=== PATIENT | male | born 1940 | race Caucasian/White ===

== ENCOUNTER → 2018-04-10 13:14 | Outpatient (CLI) | payer MEDICARE, MEDICAID, SELFPAY ==
--- NOTE | 2018-04-10 | DI.RAD.S_ITS ---
PROCEDURE: FL BARIUM SWALLOW W SPEECH INDICATIONS: DYSPHAGIA TECHNIQUE: Examination was conducted in conjunction with speech pathology per standard protocol. In the lateral projection, filming was performed of the patient swallowing. AP projection filming may also be performed with patient swallowing. COMPARISON: [facility], , CHEST 2 VIEW, 05/06/2017, 13:10. FINDINGS: Function: The oral preparatory phase appears normal, with proper containment. The subsequent oral propulsive phase, pharyngeal phase, and esophageal phase of swallowing also appear normal with all proffered substances. There is mild laryngeal penetration or aspiration. No pathologic vallecular pooling. Morphology: No cricopharyngeal bar is identified. No cervical esophageal webs. No Zenker's diverticulum. No strictures. A calibrated barium pill was given. There is mild obstruction at the level aorta and more distally at the gastroesophageal junction. IMPRESSION: 1. Mild laryngeal penetration and aspiration. Please see separate speech pathologist's report. 2. 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 3. Mild obstruction at the level of GE junction. Upper endoscopy is suggested for followup examination. Dictated by: Augusto Crespo M.D. on 04/10/2018 at 14:11 Approved by: Augusto Crespo M.D. on 04/10/2018 at 14:18
--- NOTE | 2018-04-10 16:27 | ST.SWALLOW ---
Care Team Visit Care Team Role Provider Type Cassius Butler MD Primary Care Provider Physician Specialty: Family Practice Address: [address] [place] [place], [address] Email: [email or web address] Brett Roche MD Attending Provider Physician Specialty: Ear, Nose, Throat Address: [address] [place] [address] [place], [address] Email: Modified Barium Swallow Study INSIGHT DIRECTOR Modified Barium Swallow Study Start: 04/10/18 16:00 Freq: Status: Active Protocol: Document 04/10/18 16:00 MRM (Rec: 04/10/18 16:26 MRM [id number]) Modified Barium Swallow Study Total Time Visit Start Time 13:30 Visit Stop Time 14:30 Total Visit Minutes [address] Roche Reason for Referral Dysphagia; cough Setting Setting Outpatient Care Patient Information Identification Type Name Other Patient History Patient is a 77 year old male present for an outpatient MBS following recommendations from community swallow screen at [facility]. Per ENT report, he is a persistent smoker, presenting for evaluation of progressive dysphagia and chronic cough. 2 years of dysphagia beginning with pills, gradually worsening to food/liquids. Feeling that the edge in his throat (likely referring to epiglottis) does not go down. Patient informed INSIGHT DIRECTOR that he has occasionally felt things sticking in his throat, largely due to them getting stuck on the edge and not going down. Coughing most often relieves this sensation. Rarely does he expectorate food/drinks. Mostly he is able to swallow after coughing. He also told INSIGHT DIRECTOR that recently he began to cough so severely that he felt a pain on the left side of his throat. Upon palpation, INSIGHT DIRECTOR observed a bump /nodule-like prominence in the left side of his mid-thoat, just below the angle of mandible. Patient reported no recent weight loss or episodes of pneumonia. No neurological changes. Subjective Observations Patient arrived independently for his swallow study. No complaints of pain pre/post treatment. Patient Positioning Position View Lat-A/P Imaging Lateral View Textures Administered Trials Presented Thin Liquid via Cup Cowles Liquid via Cup Dysphagia Blenderized Textures Dysphagia Mechanical Textures Regular Textures Barium Tablet Oral Phase Source: MBSIMP (TM) (C) Bolus Specific Scoring Grid Lip Closure No Impairment (WNL) Tongue Control During Bolus Hold Minimal Impairment Bolus Prep/Mastication Minimal Impairment Bolus Transport/Lingual Motion Moderate Impairment A/P Lingual Propulsion Delay Yes Oral Residue Mild Impairment Residue Clearing Mild Impairment Nasal Regurgitation No Pharyngeal Phase Source: MBSIMP (TM) (C) Bolus Specific Scoring Grid Delayed Initiation of Pharyngeal Swallow Yes Soft Palate Elevation Mild Impairment Tongue Base Strength/Range of Motion Moderate Impairment Residue Along the Tongue Base Yes Clearance of Residue Along Tongue Base Mild Impairment Laryngeal Elevation Mild Impairment Anterior Hyoid Movement Moderate Impairment Epiglottic Range of Motion Moderate Impairment Vallecular Residue Yes Clearance of Vallecular Residue Mild Impairment Laryngeal Vestibular Closure Moderate Impairment Pharyngeal Stripping Wave Mild Impairment Pharyngeal Contraction Mild Impairment Posterior Pharyngeal Wall Residue Yes Clearance of Posterior Pharyngeal Wall Mild Impairment Residue Upper Esophageal Sphincter Opening Minimal Impairment Residue in the Pyriform Sinuses Yes Clearance of Residue in the Pyriform Minimal Impairment Sinuses Esophageal Clearance Upright Position WFL Pharyngoesophageal Backflow Observed No A/P View Textures Administered Trials Presented Thin Liquid via Cup Dysphagia Blenderized Textures A/P View Observations Pharyngeal Contraction WFL Esophageal Function Slowed Clearing Poor Motility Stasis Narrowing Esophageal Observations Esophageal Function Observed narrowed esophagus with slow peristalsis and difficulty passing barium table through esophagus and into stomach. Multiple sips of thin liquid (4) and tsp bites of applesauce (2) required to completely clear pill into stomach. Patient aware of presence of pill in esophagus, but stated that it was not painful. Please see Radiologist's report for further details. He recommended GI endoscopy follow up. Clinical Impressions Dysphagia Type Moderate pharyngeal dysphagia Findings Moderately pharyngeal dysphagia significant for delayed swallow initiation, delayed epiglottic inversion, reduced hyolaryngeal excursion and reduced airway closure. Deep laryngeal penetration and subsequent aspiration (silent ) observed in initial swallow and again at the end of the study with chin tuck. Aspiration observed only with thin liquids. With small sips, single and sequential, he was able to clear trials of thin liquid x6. With large swallow sizes, he did aspirate due to delayed swallow initiation and max spillage past the epiglottis and into the laryngeal vestibule. Aspiraiton occurred during the swallow. Patient cued to cough and clear throat, then initiate dry swallows. This was successful in extracting aspiration from trachea. No penetration or aspiration observed in trials of nectar thick liquid, applesauce, fruit or cracker. Mild- moderate residue in the valleculae and pyriform sinuses observed, but able to clear with dry swallows. Observed significant difficulty with mastication of dry cracker. Patient stated, I feel like I'm chewing newspaper). However, able to masticate and swallow despite being edentulous. Observed spillage of fruit and cracker to the valleculae prior to swallow initiation. Patient received barium tablet with water. Observed easy clearance through oral cavity and pharynx, but slowed at the level of the UES. With additional swallow, it did pass into the esophagus. In A- P view, observed stopped peristalsis of the pill in the mid-chest. With multiple trials of thin liquid, able to clear pill to the lower esophageal region, however, moderate difficulty observed passing into the stomach. Trails of applesauce x2 needed to successfully clear tablet into stomach. Please see Radiologist's report for further details. RECOMMEND: Thin liquids, no chin tuck, small sips only. Regular textures. Small bites/ sips. Alternate liquids/solids . Add moisture to dry foods to assist in passage through pharynx and esophagus. Begin meals with small sips of water . Implement dysphagia strategies to improve pharyngeal strength (chelita, effortful swallow, cordell) . Strategies explained and demonstrated to the patient, who also completed them and verbalized understanding. Strongly recommend follow up in outpatient speech therapy targeting epiglottic inversion , base of tongue strengthening , and laryngeal closure. Recommend follow up with GI for further esophageal study. Rehabilitation Potential Good Patient Appropriate for Therapy Yes Recommendations Diet Liquids Order Thin Diet Order Regular Medication Recommendation As Tolerated Comments Pills crushed or in applesauce Additional Dietary Needs Chopped Food Reminders to Use Strategies Aspiration Precautions Recommended Precautions Upright at 90 Degrees Alternate Liquids/Solids Frequent Rest Periods Small Bites/Sips Effortful Swallow Double Swallow Cordell Maneuvor Additional Precautions Chelita, effortful swallow Treatment Plan Therapy Recommendations Outpatient Speech Therapy Oral Motor Exercises Lingual Exercises Base of Tongue Exercises Compensatory Strategy Education Recommended Referrals Primary Care Physician GI Consult ENT Consult Compensatory Strategies Recommendations Sitting Upright (90 deg) Double Swallow Mendelsonn Maneuver Fpc Goals Outpatient speech therapy targeting epiglottic inversion , base of tongue strengthening , and laryngeal closure. Tolerate the safest, least restrictive diet without overt s/s of aspiration. Will receive additional education regarding results of the swallow study, aspiration , dysphagia, and the importance of following aspiration precautions. Placement Recommendation After Discharge Home
== END ==
PROVIDERS: PCP Family Medicine; Visit Provider Otolaryngology
DX: R13.10 Dysphagia, unspecified (principal); R47.02 Dysphasia; K22.2 Esophageal obstruction
CPT/HCPCS: 74230; 92611

== ENCOUNTER → 2018-08-27 12:32 | Outpatient (CLI) | payer MEDICARE, MEDICAID, SELFPAY ==
[2018-08-27 13:49] LABS: Blood Urea Nitrogen 8 mg/dL (9-20); Carbon Dioxide 24 mmol/L (22-32); Chloride 98 mmol/L (98-107); Estimated Glomerular Filt Rate > 60.0 mL/min (>60); Glucose 111 mg/dL (80-110); HEMOLYSIS < 15 (0-50); Potassium 4.2 mmol/L (3.4-5.1); Sodium 132 mmol/L (137-145)
== END ==
PROVIDERS: Visit Provider Specialist
DX: C61 Malignant neoplasm of prostate (principal)
CPT/HCPCS: 36415; 80048; 84153

== ENCOUNTER → 2018-09-02 10:08 | Outpatient (CLI) | payer MEDICARE, MEDICAID, SELFPAY ==
--- NOTE | 2018-09-02 | DI.NM.S_ITS ---
PROCEDURE: SD BONE SCAN WHOLE BODY RADIOPHARMACEUTICAL: 20.7 mCi Tc-99m MDP IV. INDICATIONS: Malignant neoplasm of prostate TECHNIQUE: Delayed whole-body scintigrams were obtained approximately 3-4 hours after intravenous injection of radiotracer. Anterior and posterior views were acquired from vertex to feet. Additional left and right oblique views of the pelvis were obtained. COMPARISON: [facility], [place], HEAD WITHOUT CONTRAST, 02/14/2011, 10:07. [place], [place], BONE SCAN WHOLE BODY, 02/23/2014, 15:24. [place], [place], BONE SCAN WHOLE BODY, 08/06/2010, 9:38. FINDINGS: Through the axial and appendicular skeleton no osseous metastatic disease is found. Mild degenerative disc disease is noted at the lower lumbosacral spine, L4-5 and L5-S1 area. This was previously present. Also previously present was asymmetric shoulder joint osteoarthritis, without exchange consultant time. This is greater on the right than the left. Minimal asymmetric increased isotope deposition is seen at the inferior left maxillary sinus, much improved from the prior study in February of 2014. IMPRESSION: No evidence of osseous metastatic disease related to reported prostate carcinoma. Radioisotope uptake and excretion through the urinary tract appears normal. Stable degenerative changes as noted lower lumbosacral spine and shoulder. Dictated by: Wilmer Garcia M.D. on 09/02/2018 at 14:53 Approved by: Wilmer Garcia M.D. on 09/02/2018 at 14:55
--- NOTE | 2018-09-02 | DI.CT.S_ITS ---
PROCEDURE: CT CHEST ABD PEL W CON INDICATIONS: Malignant neoplasm of prostate TECHNIQUE: After the administration of oral and intravenous contrast, 5 mm thick sections acquired from the lung apices to the symphysis. 5 mm coronal and sagittal reformats were performed, with additional 7 mm coronal MIP reformats through the lungs. For radiation dose reduction, the following was used: automated exposure control, adjustment of mA and/or kV according to patient size. COMPARISON: [facility], [place], NECK/CHEST/ABD/PEL W CONTRAST, 02/23/2014, 11:22. FINDINGS: Image quality: Excellent. CHEST: Lungs and pleura: No acute airspace opacities. A small peripheral nodular radiodensity at the lateral left lower hemithorax measures 5 mm, as was previously the case. No pulmonary nodules have developed. Emphysematous change is prominent at the upper lobes bilaterally, without development of a malignant appearing mass. Left lower hemithorax anterolateral lung scarring, not previously present in the lingular segment left upper lobe. Note is made of new soft tissue prominence at the middle and upper thirds of the left hilum, best seen centered on series 2 image 30 in an area measuring up to 2.4 cm AP and 1.8 cm transverse. This causes appreciable narrowing of the bronchi passing through this area. A mild degree of atelectasis at the left upper lobe is also present as is what likely is retention of pulmonary secretions best seen on the coronal reformatt imaging lung windows through that area. This was not previously present on CT scanning from February of 2014. No pleural effusions or pneumothorax. Central and peripheral airways otherwise appear patent and normal in caliber. Mediastinum: Heart size is normal. No pericardial effusion. No mediastinal or hilar adenopathy by size criteria. Thoracic aorta and central pulmonary arteries are normal in size. Esophagus is normal in caliber. No hiatal hernia. Chest wall: No axillary or supraclavicular adenopathy by size criteria. Thyroid gland appears normal. ABDOMEN: Solid organs: Liver is normal in size and enhancement. Gallbladder appears normal where well visualized. Biliary system is non dilated. Pancreas enhances normally. Spleen is normal in size and enhancement. No adrenal nodules. Kidneys demonstrate normal size and enhancement, without hydronephrosis. Peritoneum and bowel: Bowel loops demonstrate normal wall thickness and caliber. No free fluid or air. Nodes and vessels: No retroperitoneal or mesenteric adenopathy by size criteria. Aorta and inferior vena cava are normal in size. Miscellaneous: No ventral hernias. PELVIS: Genitourinary: Bladder wall thickness is normal. Miscellaneous: No inguinal hernias or adenopathy. The prostate does not appear enlarged, no adenopathy within the pelvis is seen. Bones: No suspicious bony lesions. No vertebral body compression fractures. IMPRESSION: 1. COPD with emphysematous change, stable appearing small 5 mm nodule lateral aspect of left lower lobe. New finding of what appears be lung scarring within the lingular segment left upper lobe, adjacent to the left ventricular apex. Presumed long-standing smoking history. 2. There is a finding suspicious for central pulmonary mass lesion with adjacent contiguous adenopathy involving the middle and upper thirds of the left hilum where new soft tissue has developed surrounding bronchi, constricting the bronchi, and resulting in a mild degree of atelectasis combined with retention of pulmonary secretions within the left upper lobe near the lung apex. Nuclear medicine PET CT scanning likely is warranted to more accurately assess this area to assist in differentiating between malignancy versus infection. This appearance was not present in February of 2014. 3. The patient carries a history of reported prostate carcinoma. No osteoblastic lesions through the bones are seen and the prostate itself appears normal in size. No adjacent pelvic adenopathy is found. No distant evidence of prostate carcinoma metastasis. Dictated by: Wilmer Garcia M.D. on 09/02/2018 at 14:04 Approved by: Wilmer Garcia M.D. on 09/02/2018 at 14:15
== END ==
PROVIDERS: PCP Family Medicine; Visit Provider Specialist
DX: C61 Malignant neoplasm of prostate (principal); J44.9 Chronic obstructive pulmonary disease, unspecified; R91.1 Solitary pulmonary nodule; J98.11 Atelectasis; J98.4 Other disorders of lung; M47.817 Spondylosis without myelopathy or radiculopathy, lumbosacral region; M19.019 Primary osteoarthritis, unspecified shoulder
CPT/HCPCS: 71260; 74177; 78306; A9503; Q9967

== ENCOUNTER → 2018-09-23 10:57 | Outpatient (CLI) | payer MEDICARE, MEDICAID, SELFPAY ==
--- NOTE | 2018-09-25 16:46 | P.PFT.S_ITS ---
Pulmonary Function Test Referral & Results Date Patient Seen: 09/23/18 Requesting provider: Cassius Butler Indication: J44.9 Results: The spirometry demonstrates an FVC of 4.1 2 L which is 99% of predicted. The FEV1 was measured at 2.25 L which is 75% of predicted. The FEV1/FVC ratio was 55 which is 75% of predicted. Following the administration of bronchodilator there was no appreciable change. Lung volumes show an SVC of 3.84 L which is 85% of predicted. The diffusing capacity was measured at 19.78 which is 59% of predicted. No hemoglobin value was provided, so no correction for potential anemia could be made, if appropriate. The maximum voluntary ventilation was normal Interpretation: This study demonstrates mild to moderate obstructive lung di sease based on reduction in FEV1 and FEV1/FVC ratio. Following bronchodilator there is no significant benefit There is mild restrictive lung disease present based on slight reduction in lung volumes There is a [id number] reduction in diffusing capacity suggesting an element of disease at the capillary alveolar level as well. Compared to PFTs performed in October 2014, current study is essentially unchanged
== END ==
PROVIDERS: PCP Family Medicine; Visit Provider Family Medicine
DX: J44.9 Chronic obstructive pulmonary disease, unspecified (principal)
CPT/HCPCS: 94060; 94726; 94729

== ENCOUNTER 2018-11-26 11:48 | Day surgery (SDC) | payer MEDICARE, MEDICAID, SELFPAY ==
[2018-11-26] VITALS (7 sets, daily range): BP systolic 139–166; BP diastolic 66–79; PULSE 53–70; RESP 16–19; TEMP 36.8–37.1; O2SAT 92–98; BMI 21.5
--- NOTE | 2018-11-26 | PATH_ITS ---
[facility] Accession Number: [id number] . 01 Material submitted: . esophagus, E-G Junction - GE JUNCTION BIOPSY . 01 Clinical history: . SUSPICION OF VALLADARES'S ESOPHAGUS . 02 Diagnosis: Gastroesophageal Junction, Biopsy: Squamocolumnar junctional mucosa with specialized intestinal metaplasia; please see comment. Negative for dysplasia or malignancy. MRV/11/27/2018 . 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 . 02 Electronically signed: . Cheko Romo MD, PhD, Pathologist NPI- [id number] . 01 Gross description: . GE JUNCTION BIOPSY: Received in formalin are multiple fragment(s) of solano, soft tissue measuring 0.1 x 0.1 x 0.1 cm to 0.3 x 0.2 x 0.2 cm which is entirely submitted and submitted entirely in 1 cassette(s) /DMC /DMC . 02 Pathologist provided ICD-10: K22.70 . 02 CPT . 636893 Performed at: 01 [facility] [address], [place], [place] [id number] MD Cornelius Brown MD Phone: [phone] Performed at: 02 [facility] [address] [place], [place] [id number] MD Patricia Elizabeth MD Phone: [phone]
[2018-11-26] MEDS: SODIUM CHLORIDE 0.9% 1,000 ML 200 ML IV (12:20)
--- NOTE | 2018-11-26 12:25 | PM.PREOP ---
Pre-operative Note Interval Note History & Physical reviewed/Exam performed by Physician: Yes Changes to H&P: No ASA Class (for procedural sedation): II
[2018-11-26] MEDS: TETRACAINE/BENZOCAINE/BUTAMBEN (CETACAINE) BOTTLE 1 SPRAY TOP (12:40)
[2018-11-26] MEDS: LIDOCAINE 4% SOLN 50 ML 20 ML TOP (12:40)
[2018-11-26] MEDS: fentaNYL 250 MCG/5 ML INJ IV (12:41)
[2018-11-26] MEDS: MIDAZOLAM 5 MG/5 ML VIAL IV (12:41)
--- NOTE | 2018-11-26 12:51 | PM.OP.ENDO ---
Operative Date/Time/Diagnoses Date of procedure: 11/26/18 Time of procedure: 12:51 Pre-op diagnosis: Dysphagia Post-op diagnosis: same Procedure & Clinicians Study performed: 1. Esophagogastroduodenosocpy with biopsies Same procedure as scheduled: Yes Indications: 78yo M with dysphagia and coughing referred by ENT for EGD. Surgeon: Khadijah Boles Procedure Notes SCOAP/Timeout: 1233 Procedure in detail: After obtaining informed consent, the patient was brought to the GI suite and placed in the left lateral decubitus position on the examination table. After placement of appropriate monitors, the patient was given incremental doses of Versed and Fentanyl until an appropriate level of sedation was achieved. A time out was held per SCOAP protocol. Patient's initial BP was 189/80 but this came down. A bite block was gently placed between the patient's gums. The endoscope was lubricated and then passed into the patient's posterior oropharynx. The esophagus was cannulated under direct vision and the scope was passed to the second portion of the duodenum without difficulty. The scope was then withdrawn with careful examination of all areas of the upper GI tract and mucosa. The mucosa had mild hyperemic changes along the body. In the stomach, the instrument was retroflexed and the GE junction examined. A tongue of salmon colored tissue extending 1cm from the GEJ suspicious for Adame's was seen. Four quadrant biopsies were taken. The scope was straightened and the procedure continued with examination of the remainder of the upper GI tract. A patch of more pink tissue was noted higher in the upper esophagus but was not abnormal other than a different color than surrounding tissue. Air was aspirated from the stomach and the endoscope gently removed from the esophagus. The patient was allowed to awaken from sedation without difficulty but his blood pressure spiked to 200s/100s which improved with medication. He was taken to the post-anesthesia care unit in good condition. Air was aspirated from the stomach and the endoscope gently removed from the esophagus. Scope withdrawal time: n/a Sedation minutes: 11 Findings: Adame's esophagus (possible, single column 1cm of salmon colored tissue at GEJ) Specimen(s): other (4 quadrant biopsies from GEJ for suspicion of Adame's) Complications: other (hypertension to 230/118, treated with IV metoprolol with good response) Impression: 1. 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 Normal posterior oropharynx Recommendations: EGD in 3 years (pending biopsies) Follow up: weeks Disposition: PACU
[2018-11-26] MEDS: METOPROLOL TARTRATE 5 MG/5 ML INJ IV (12:53)
== END 2018-11-26 14:09 ==
PROVIDERS: PCP Family Medicine; Visit Provider Surgery
PROC: 0DJ08ZZ Inspection of Upper Intestinal Tract, Via Natural or Artificial Opening Endoscopic (ICD-10-PCS; CPT 43235; principal; 2018-11-26 13:00)
DX: K22.70 Barrett's esophagus without dysplasia (principal); I10 Essential (primary) hypertension; F17.210 Nicotine dependence, cigarettes, uncomplicated
CPT/HCPCS: 43239; 88305; 99152; J2250; J3010

== ENCOUNTER → 2019-02-01 12:21 | Outpatient (CLI) | payer MEDICARE, MEDICAID, SELFPAY ==
[2019-02-01 13:49] LABS: Estimated Glomerular Filt Rate > 60.0 mL/min (>60)
== END ==
PROVIDERS: Visit Provider Radiology Radiation Oncology
DX: C34.00 Malignant neoplasm of unspecified main bronchus (principal)
CPT/HCPCS: 36415; 82565

== ENCOUNTER → 2019-03-02 11:48 | Outpatient (CLI) | payer MEDICARE, MEDICAID, SELFPAY ==
[2019-03-02 14:03] LABS: Prostate Specific Antigen 122 ng/mL (0.10-4.00)
== END ==
PROVIDERS: Visit Provider Specialist
DX: C61 Malignant neoplasm of prostate (principal)
CPT/HCPCS: 36415; 84153

== ENCOUNTER → 2019-04-07 16:14 | Outpatient (CLI) | payer MEDICARE, MEDICAID, SELFPAY ==
--- NOTE | 2019-04-07 | DI.RAD.S_ITS ---
PROCEDURE: XR CERVICAL SPINE 2V OR 3V INDICATIONS: NECK PAIN x10 YEARS TECHNIQUE: 5 view(s) of the cervical spine were acquired. COMPARISON: None. FINDINGS: Bones: No fractures or dislocations to the T1 level. The lateral masses of C1 appear intact on the odontoid view. No suspicious bony lesions. Severe cervical spondylitic change. Multilevel disc loss and uncovertebral joint hypertrophy. Multilevel facet hypertrophy. Soft tissues: No prevertebral soft tissue swelling. Dense carotid atherosclerotic calcifications. IMPRESSION: 1. Severe cervical spinal lytic change. 2. ASCVD Dictated by: Elvis Hoff M.D. on 04/07/2019 at 16:53 Approved by: Elvis Hoff M.D. on 04/07/2019 at 16:54
== END ==
PROVIDERS: PCP Student in an Organized Health Care Education/Training Program; Visit Provider Student in an Organized Health Care Education/Training Program
DX: M54.2 Cervicalgia (principal); M47.812 Spondylosis without myelopathy or radiculopathy, cervical region; I25.10 Atherosclerotic heart disease of native coronary artery without angina pectoris
CPT/HCPCS: 72040

== ENCOUNTER → 2019-04-09 13:59 | Outpatient (CLI) | payer MEDICARE, MEDICAID, SELFPAY ==
--- NOTE | 2019-04-09 | DI.US.S_ITS ---
PROCEDURE: US CAROTID DOPPLER BI INDICATIONS: DIZZINESS TECHNIQUE: Color and pulse Doppler interrogation was performed of both carotid systems, with image documentation and velocity measurements. COMPARISON: None. FINDINGS: Stenosis calculations are based on SRU (Society of Radiologists in Ultrasound) criteria. Right side: Brachial blood pressure: 127/69 mm Hg. Common carotid artery peak systolic velocity: 74 cm/sec. Internal carotid artery peak systolic velocity: 185 cm/sec. Internal carotid artery end diastolic velocity: 44 cm/sec. External carotid artery peak systolic velocity: 154 cm/sec. ICA/CCA peak systolic ratio: 2.5. Garcia scale imaging description: Heavy scattered plaque. Percent internal carotid artery stenosis: 50-69% stenosis. Vertebral artery: Flow direction is antegrade. Left side: Brachial blood pressure: 120/62 mm Hg. Common carotid artery peak systolic velocity: 75 cm/sec. Internal carotid artery peak systolic velocity: 132 cm/sec. Internal carotid artery end diastolic velocity: 19 cm/sec. External carotid artery peak systolic velocity: 85 cm/sec. ICA/CCA peak systolic ratio: 1.8. Garcia scale imaging description: Heavy scattered plaque. Percent internal carotid artery stenosis: 50-69% stenosis. Vertebral artery: Flow direction is antegrade. IMPRESSION: 50-69% bilateral internal carotid artery stenosis. Dictated by: Finesse Thomas [facility] Interpreted: Mercedes Ribeiro MD on 04/09/2019 at 16:07 Approved by: Mercedes Ribeiro M.D. on 04/09/2019 at 16:22
== END ==
PROVIDERS: PCP Student in an Organized Health Care Education/Training Program; Visit Provider Student in an Organized Health Care Education/Training Program
DX: R42 Dizziness and giddiness (principal); I65.23 Occlusion and stenosis of bilateral carotid arteries
CPT/HCPCS: 93880

== ENCOUNTER 2019-04-14 14:07 | Day surgery (SDC) | payer MEDICARE, MEDICAID, OTHER, SELFPAY ==
[2019-04-14] VITALS (8 sets, daily range): BP systolic 141–161; BP diastolic 62–75; PULSE 61–79; RESP 11–20; TEMP 36–36.2; O2SAT 97–100; BMI 18.6
--- NOTE | 2019-04-14 | DI.RAD.S_ITS ---
PROCEDURE: XR CHEST 1V INDICATIONS: PORT A CATH INSERTION TECHNIQUE: One view of the chest was acquired. COMPARISON: [facility], , CHEST 2 VIEW, 05/06/2017, 13:10. FINDINGS: Surgical changes and devices: Right chest port with the tip projecting in the mid SVC. Lungs and pleura: Diffuse interstitial disease and scarring as before. No new consolidation. No pleural effusions or pneumothorax. Mediastinum: Mediastinal contours appear normal. Heart size is normal. Bones and chest wall: No suspicious bony lesions. Overlying soft tissues appear unremarkable. IMPRESSION: Right chest port with the tip projecting in the mid SVC. No pneumothorax identified. Dictated by: Brenton Espana M.D. on 04/14/2019 at 17:45 Approved by: Brenton Espana M.D. on 04/14/2019 at 17:49
[2019-04-14] MEDS: LACTATED RINGERS 1,000 ML 100 ML IV ×2 (15:10→16:25)
--- NOTE | 2019-04-14 15:52 | SUR.PREOP ---
Dr. Manjarrez notified 90mls IV fluid infused, no new orders.
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
[2019-04-14] MEDS: CLINDAMYCIN 900 MG/50 ML PIGGYBACK 50 MG IV (16:20)
--- NOTE | 2019-04-14 16:26 | SUR.OPER ---
Supine on padded OR bed, head on donut, arm padded and tucked at side, legs uncrossed, safety belt at thigh, tape over blanket over lower legs.
[2019-04-14] MEDS: HEPARIN 5,000 UNIT, SODIUM CHLORIDE 0.9% 50 ML IV (16:40)
[2019-04-14] MEDS: BUPIVACAINE 0.25% (PF) VIAL 30 ML INJ (16:42)
--- NOTE | 2019-04-14 17:11 | PM.OP.1 ---
Operative Date/Time/Diagnoses Date of procedure: 04/14/19 Time of procedure: 17:12 Pre-op diagnosis: lung cancer Post-op diagnosis: same Procedure & Clinicians Procedure: Right internal jugular Port-A-Cath placement under ultrasound guidance Same procedure as scheduled: Yes Indications: 78-year-old male with stage III left lung cancer presents for a Port-A-Cath placement for chemotherapy Surgeon: Jb Coreas Click Yes if Unassisted: Yes Anesthesia Type: General Operative Notes Findings: Tip of catheter terminates in the SVC Estimated Blood Loss (mL): 5 Procedure in detail: Patient was brought to the operating room placed supine on table. Bilateral lower extremity compressive devices were applied. General anesthesia was induced and he was intubated with an LMA. He was then prepped and draped in usual sterile fashion. Time-out was performed ensure the correct patient procedure necessary equipment within the operating room. He received 2 g of Ancef prior to incision. Under ultrasound guidance the right internal jugular vein was accessed under direct visualization. The guidewire was then threaded through the needle. Its placement was then confirmed using fluoroscopy. The dilator was then placed over the guidewire. The catheter was then inserted through the sheath. Placement was again confirmed with fluoroscopy. A subcutaneous pocket was made in the right chest wall. The tunneler device was used to move the catheter from the neck to the chest pocket. The port was attached after it was primed with heparined saline. The port was tested to ensure that it flushed easily and had good blood return. The port was then secured to the underlying fascia using interupted 0 Prolene suture. Hemostasis was achieved. The wound was irrigated with sterile saline. The subcutaneous tissues were reapproximated with the 3 0 Vicryl and then skin closed with 4-0 Monocryl. The skin was sealed with Dermabond. Patient tolerated procedure well. The sponge and instrument count at the end operation was correct. Patient emerged from general anesthesia was extubated and taken to the postoperative care unit in stable condition Complications: none Post-operative Condition: stable Disposition: same day surgery
== END 2019-04-14 18:16 | disposition home or self-care (01) ==
PROVIDERS: PCP Student in an Organized Health Care Education/Training Program; Visit Provider Surgery
PROC: (CPT 36561; principal; 2019-04-14 16:00)
DX: C34.92 Malignant neoplasm of unspecified part of left bronchus or lung (principal); Z45.2 Encounter for adjustment and management of vascular access device; F17.210 Nicotine dependence, cigarettes, uncomplicated
CPT/HCPCS: 36561; 71045; 76000; C1788; J1644; J2405; J2704; J3010

== ENCOUNTER → 2019-05-12 14:11 | Outpatient (CLI) | payer MEDICARE, MEDICAID, SELFPAY ==
[2019-05-12 16:16] LABS: Prostate Specific Antigen 39.1 ng/mL (0.10-4.00)
== END ==
PROVIDERS: PCP Student in an Organized Health Care Education/Training Program; Visit Provider Specialist
DX: C61 Malignant neoplasm of prostate (principal)
CPT/HCPCS: 36415; 84153

== ENCOUNTER → 2019-07-13 09:06 | Outpatient (CLI) | payer MEDICARE, MEDICAID, SELFPAY ==
--- NOTE | 2019-07-13 09:08 | DI.CT.S_ITS ---
PROCEDURE: CT CHEST ABD PEL W CON INDICATIONS: follow up lung cancer TECHNIQUE: After the administration of oral and intravenous contrast, 5 mm thick sections acquired from the lung apices to the symphysis. 5 mm coronal and sagittal reformats were performed, with additional 7 mm coronal MIP reformats through the lungs. For radiation dose reduction, the following was used: automated exposure control, adjustment of mA and/or kV according to patient size. COMPARISON: [facility], CT, NECK/CHEST/ABD/PEL W CONTRAST, 02/23/2014, 11:22. [facility], NM, NM PET CT FUSION SKULL 2 THIGH, 10/14/2018, 15:50. [facility], CT, CT CHEST ABD PEL W CON, 09/02/2018, 11:19. [facility], CT, CT CHEST WITH CONTRAST, 02/04/2019, 14:51. FINDINGS: Image quality: Excellent. CHEST: Lungs and pleura: The 1.8 x 1.7 cm left hilar mass seen on the comparison CT dated 02/04/2019 has decreased in size. A small 0.6 x 1.3 cm soft tissue density is noted in the left hilum. There is a 3.8 x 3.5 cm masslike density in the left apex, unchanged, most likely secondary to scarring. There is traction bronchiectasis in the left upper lobe. A subpleural density seen in the lingula, measuring 1.1 x 2.8 cm, also unchanged. There is severe centrilobular emphysema emphysema. No pleural effusions or pneumothorax. Central and peripheral airways appear patent and normal in caliber. Mediastinum: A small left hilar lymph node is noted, measuring 9 x 13 mm. Heart size is normal. No pericardial effusion. No mediastinal or hilar adenopathy by size criteria. Thoracic aorta and central pulmonary arteries are normal in size. Esophagus is normal in caliber. Small hiatal hernia. Chest wall: No axillary or supraclavicular adenopathy by size criteria. Thyroid gland is normal. There is a Port-A-Cath in the right anterior chest wall. ABDOMEN: Solid organs: Liver is normal in size and enhancement. Gallbladder is normal. Biliary system is non dilated. Pancreas enhances normally. Spleen is normal in size and enhancement. No adrenal nodules. Kidneys demonstrate normal size and enhancement, without hydronephrosis. Peritoneum and bowel: Bowel loops demonstrate normal wall thickness and caliber. A large amount of stool in colon. Normal appendix. No free fluid or air. Nodes and vessels: No retroperitoneal or mesenteric adenopathy by size criteria. Mild infrarenal abdominal aortic aneurysm measuring 2.9 cm. Severe atherosclerosis. Miscellaneous: No ventral hernias. PELVIS: Genitourinary: Distended bladder. Bladder wall thickness is normal. Prostate is enlarged. Miscellaneous: No inguinal hernias or adenopathy. Bones: No suspicious bony lesions. No vertebral body compression fractures. IMPRESSION: 1. Interval decrease in size of the left hilar mass. 2. Small left hilar lymph node is noted in. 3. Severe centrilobular emphysema and right apical and lingular opacitie Dictated by: Augusto Crespo M.D. on 07/13/2019 at 14:12 Approved by: Augusto Crespo M.D. on 07/13/2019 at 18:37
== END ==
PROVIDERS: Family Provider Student in an Organized Health Care Education/Training Program; PCP Student in an Organized Health Care Education/Training Program
DX: C34.92 Malignant neoplasm of unspecified part of left bronchus or lung (principal); J43.2 Centrilobular emphysema; K44.9 Diaphragmatic hernia without obstruction or gangrene
CPT/HCPCS: 71260; 74177; Q9967

== ENCOUNTER 2019-09-06 13:45 | Outpatient (RCR) | payer MEDICARE, OTHER, MEDICAID, SELFPAY ==
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
--- NOTE | 2019-07-20 16:00 | PT.OTN ---
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) Muscle weakness (generalized) (07/20/19) Other abnormalities of gait and mobility (07/20/19) Chronic fatigue, unspecified (07/20/19) History of falling (07/20/19) Physical Therapy Treatment Note PT-OP-A Visit Information Start: 06/29/19 13:51 Freq: Status: Active Protocol: Document 07/20/19 15:15 DCW (Rec: 07/20/19 16:00 DCW [id number]) Out-Patient Physical Therapy Visit Information Visit Information Visit Type Initial Evaluation Visit Start Time 15:15 Visit Stop Time 16:00 Total Visit Minutes 45 Visit Number 2 Number of HOOP RIVETER Visits 0 Evaluation Information Evaluation Date 06/29/19 PT-OP-B Current Condition Start: 06/29/19 13:51 Freq: Status: Active Protocol: Document 06/29/19 10:30 DCW (Rec: 06/29/19 14:27 DCW [id number]) Current Condition History of Current Condition Onset Date 3 weeks Current Complaints weakness and imbalance following chemotherapy History of Current Condition Pt is a 78 year old male presenting with complaints of a waxing and waning imbalance and weakness associated with his current course of chemotherapy. Per his oncology notes, pt has a history of a relatively small primary squamous lung cancer but was found to have positive N2 node at the time of endobronchial ultrasound. He underwent radiation therapy but had declined concurrent chemotherapy. At the completion of his radiation, he was open to the possibility of sequential therapy and has since undergone his 2nd cycle of treatment (Ronald Miguel MD, 06/09/19). Pt reports that he felt okay following his first round of chemo, but the after the second, was weak and shaking and wouldn't stand for about a week. After his recent third round, he performed a lot of LAQ, SLR , and mini-squats, and felt like he recovered much more quickly. Pt requested a referral to PT so he could learn more exercises to help strengthen his legs, unfortunately due to a delay getting in for an appointment, his fourth (and planned final ) round of chemo is tomorrow, but pt is hopeful that following that, he will be feeling well enough that he can continue with his currently scheduled PT. Pt also admits to two falls in his kitchen within the past 1. 5 years, and three or four other falls out in public over the last five years or so. Prior Treatments and Tests Radiation and chemotherapy Treatment Goals Patient/Caregiver Goals Pt wants to limit weakness and fatigue following chemotherapy, and to improve walking and stability. Personal Factors Other Personal Factors That May Effect COPD, Hx Prostate Ca s/p Therapy/Recovery orchiectomy, radiation and chemo secondary to squamous cell lung cancer. PT-OP-C Subjective Start: 06/29/19 13:51 Freq: Status: Active Protocol: Document 07/20/19 15:15 DCW (Rec: 07/20/19 16:00 DCW [id number]) OP-PT Subjective Patient Comments Patient Comments Today is a medium day. I have really bad days, I have medium days, and over the last six months, I have had three good days. PT-OP-D Balance Start: 06/29/19 13:51 Freq: Status: Active Protocol: Document 06/29/19 10:30 DCW (Rec: 06/29/19 14:27 DCW [id number]) Balance Tests Waters Balance Test Waters Balance Test Score 42 Waters Impairment Rating 20 to 39% Impaired (Score 34- 44) Waters Balance Assessment Evaluation Sitting to Standing Ability Independent w/Hands Unsupported Stance Supervision- 2 minutes Sitting Unsupported, Feet on Floor Safely- 2 minutes Standing to Sitting Ability Assist, Control w/Hands Transfer Ability Safely, Hand Use Unsupported Stance- Eyes Closed Supervision, 10 seconds Unsupported Stance- Eyes Open Independent, <30 seconds Reaching Forward Standing Safely, 5 inches Pick- Up Object From Floor Supervision Look Behind Shoulder - Standing Shifts Weight Well Turning 360 Degrees Turns Bilateral, < 4 secs Unsupported Stance, Alternating Feet on (I)- 8 Steps in 20 secs Stair Unsupported Tandem Stance Small Step- 30 seconds Unilateral Leg Stance Lifts Leg/Unable to Hold Total Score Waters Total Score (out of 56 points) 42 Waters Impairment Rating 20 to 39% Impaired (Score 34- 44) PT-OP-E Functional Tests Start: 06/29/19 13:51 Freq: Status: Active Protocol: Document 06/29/19 10:30 DCW (Rec: 06/29/19 14:27 DCW [id number]) Functional Tests Dynamic Gait Index (DGI) Score PT-OP-M Strength Start: 06/29/19 13:51 Freq: Status: Active Protocol: Document 06/29/19 10:30 DCW (Rec: 06/29/19 14:27 DCW [id number]) Hip Strength Hip Manual Muscle Testing Right Flexion (L2) 4- Good- Abduction 4 Good Adduction 4- Good- External Rotation 4- Good- Internal Rotation 4- Good- Left Flexion (L2) 4 Good Abduction 4- Good- Adduction 4- Good- External Rotation 4- Good- Internal Rotation 4- Good- Knee Strength Knee Manual Muscle Testing Right Flexion (S2) 4- Good- Extension (L3) 4 Good Left Flexion (S2) 4- Good- Extension (L3) 4 Good Ankle/Foot Strength Ankle and Foot Manual Muscle Testing Right Dorsiflexion (L4) 3+ Fair+ Plantarflexion (S1) 3 Fair Left Dorsiflexion (L4) 3+ Fair+ Plantarflexion (S1) 3 Fair PT-OP-Q Treatments Start: 06/29/19 13:51 Freq: Status: Active Protocol: Document 07/20/19 15:15 DCW (Rec: 07/20/19 16:00 DCW [id number]) Cardio Equipment Recumbent Elliptical ([employer]) Duration (Minutes) 4 Resistance 4 Seat Position 11 Gym Equipment Shuttle Recovery Bilateral Heel Raises Resistance 50# Unilateral Squats Resistance 37# Shuttle Recovery Platform Stable Bilateral Squats Resistance 75# Shuttle Recovery Platform Stable Therapeutic Exercises Standing Exercises Hamstring Curls Standing Exercise Name HS Curls Side bilateral Resistance 2# Toe-taps Standing Exercise Name Toe-taps Side bilateral Resistance 2# Equipment Used 6 step Other Exercises Hurdles Other Exercise Name Hurdles Resistance 2# Comments Fwd, Lateral Resisted Ambulation Other Exercise Name Resisted Side-stepping Resistance Yellow Equipment Used T-band PT-OP-T Assessment and Plan Start: 06/29/19 13:51 Freq: Status: Active Protocol: Document 07/20/19 15:15 DCW (Rec: 07/20/19 16:00 DCW [id number]) Physical Therapy Assessment Impairments Impairments Activity Tolerance,Balance, Functional Mobility,Gait, Strength Other Concerns Fall Risk Yes, per Waters (42/56) and DGI () Barriers to Rehabilitation Hx of falls, Hx of Lung Ca, Hx of Prostate Ca, currently receiving Chemo Goals Three Impairment Pt experiences weakness and decreased stability following Chemo Detention Goal (LTG) Pt to score >20/24 on DGI and >49/56 on Watesr to demonstrate decreased falls risk LTG Duration 08/30/18 Two Impairment Pt has increased difficulty rising after sitting on toilet Detention Goal (LTG) Pt to improve gross LE MMT to 4/5 to improve sit->stand ability LTG Duration 08/30/18 One Impairment Pt does not have an appropriate home exercise program Short Term Goal (STG) Pt to be independent and compliant with an appropriate HEP STG Duration 07/30/18 Assessment Summary Assessment Pt tolerated treatment with moderate fatigue, but wanted to continue working through his increased tiredness. Pt refused extended rest break or any water during treatment. Physical Therapy Plan Frequency and Duration Frequency of Treatment 2x/Week Duration of Treatment 10 weeks Plan of Care Start Date 06/29/19 Plan of Care End Date 09/07/19 Therapeutic Interventions Therapeutic Interventions Aquatic Therapy,Balance Training,Home Exercise Program ,Manual Therapy,Neuromuscular Re-education,Patient/Caregiver Education,Self-Care/Home Management,Soft Tissue Mobilization,Therapeutic Exercises Modalities Cold Pack/Ice Massage,Hot Packs Next Visit Focus/Plan Next Note Type Treatment Note Next Visit Plan Balance training, strengthening, increased activity tolerance
--- NOTE | 2019-07-22 14:30 | PT.OTN ---
Current Diagnoses Malignant neoplasm of unspecified part of left bronchus or lung (07/22/19) Idiopathic progressive neuropathy (07/22/19) Muscle weakness (generalized) (07/22/19) Other abnormalities of gait and mobility (07/22/19) Chronic fatigue, unspecified (07/22/19) History of falling (07/22/19) Physical Therapy Treatment Note PT-OP-A Visit Information Start: 06/29/19 13:51 Freq: Status: Active Protocol: Document 07/22/19 13:45 DCW (Rec: 07/22/19 14:30 DCW [id number]) Out-Patient Physical Therapy Visit Information Visit Information Visit Type Treatment Note Visit Start Time 13:45 Visit Stop Time 14:30 Total Visit Minutes 45 Visit Number 3 Number of ELECTRONICS DETAIL DRAFTSPERSON Visits 0 Evaluation Information Evaluation Date 06/29/19 PT-OP-B Current Condition Start: 06/29/19 13:51 Freq: Status: Active Protocol: Document 06/29/19 10:30 DCW (Rec: 06/29/19 14:27 DCW [id number]) Current Condition History of Current Condition Onset Date 3 weeks Current Complaints weakness and imbalance following chemotherapy History of Current Condition Pt is a 78 year old male presenting with complaints of a waxing and waning imbalance and weakness associated with his current course of chemotherapy. Per his oncology notes, pt has a history of a relatively small primary squamous lung cancer but was found to have positive N2 node at the time of endobronchial ultrasound. He underwent radiation therapy but had declined concurrent chemotherapy. At the completion of his radiation, he was open to the possibility of sequential therapy and has since undergone his 2nd cycle of treatment (Ronald Miguel MD, 06/09/19). Pt reports that he felt okay following his first round of chemo, but the after the second, was weak and shaking and wouldn't stand for about a week. After his recent third round, he performed a lot of LAQ, SLR , and mini-squats, and felt like he recovered much more quickly. Pt requested a referral to PT so he could learn more exercises to help strengthen his legs, unfortunately due to a delay getting in for an appointment, his fourth (and planned final ) round of chemo is tomorrow, but pt is hopeful that following that, he will be feeling well enough that he can continue with his currently scheduled PT. Pt also admits to two falls in his kitchen within the past 1. 5 years, and three or four other falls out in public over the last five years or so. Prior Treatments and Tests Radiation and chemotherapy Treatment Goals Patient/Caregiver Goals Pt wants to limit weakness and fatigue following chemotherapy, and to improve walking and stability. Personal Factors Other Personal Factors That May Effect COPD, Hx Prostate Ca s/p Therapy/Recovery orchiectomy, radiation and chemo secondary to squamous cell lung cancer. PT-OP-C Subjective Start: 06/29/19 13:51 Freq: Status: Active Protocol: Document 07/22/19 13:45 DCW (Rec: 07/22/19 14:30 DCW [id number]) OP-PT Subjective Patient Comments Patient Comments Pt reports today is also a medium day, but yesterday was a bad day. He does not think it was due to the PT, and was just one of those days I get since the chemo. PT-OP-D Balance Start: 06/29/19 13:51 Freq: Status: Active Protocol: Document 06/29/19 10:30 DCW (Rec: 06/29/19 14:27 DCW [id number]) Balance Tests Waters Balance Test Waters Balance Test Score 42 Waters Impairment Rating 20 to 39% Impaired (Score 34- 44) Waters Balance Assessment Evaluation Sitting to Standing Ability Independent w/Hands Unsupported Stance Supervision- 2 minutes Sitting Unsupported, Feet on Floor Safely- 2 minutes Standing to Sitting Ability Assist, Control w/Hands Transfer Ability Safely, Hand Use Unsupported Stance- Eyes Closed Supervision, 10 seconds Unsupported Stance- Eyes Open Independent, <30 seconds Reaching Forward Standing Safely, 5 inches Pick- Up Object From Floor Supervision Look Behind Shoulder - Standing Shifts Weight Well Turning 360 Degrees Turns Bilateral, < 4 secs Unsupported Stance, Alternating Feet on (I)- 8 Steps in 20 secs Stair Unsupported Tandem Stance Small Step- 30 seconds Unilateral Leg Stance Lifts Leg/Unable to Hold Total Score Waters Total Score (out of 56 points) 42 Waters Impairment Rating 20 to 39% Impaired (Score 34- 44) PT-OP-E Functional Tests Start: 06/29/19 13:51 Freq: Status: Active Protocol: Document 06/29/19 10:30 DCW (Rec: 06/29/19 14:27 DCW [id number]) Functional Tests Dynamic Gait Index (DGI) Score PT-OP-M Strength Start: 06/29/19 13:51 Freq: Status: Active Protocol: Document 06/29/19 10:30 DCW (Rec: 06/29/19 14:27 DCW [id number]) Hip Strength Hip Manual Muscle Testing Right Flexion (L2) 4- Good- Abduction 4 Good Adduction 4- Good- External Rotation 4- Good- Internal Rotation 4- Good- Left Flexion (L2) 4 Good Abduction 4- Good- Adduction 4- Good- External Rotation 4- Good- Internal Rotation 4- Good- Knee Strength Knee Manual Muscle Testing Right Flexion (S2) 4- Good- Extension (L3) 4 Good Left Flexion (S2) 4- Good- Extension (L3) 4 Good Ankle/Foot Strength Ankle and Foot Manual Muscle Testing Right Dorsiflexion (L4) 3+ Fair+ Plantarflexion (S1) 3 Fair Left Dorsiflexion (L4) 3+ Fair+ Plantarflexion (S1) 3 Fair PT-OP-Q Treatments Start: 06/29/19 13:51 Freq: Status: Active Protocol: Document 07/22/19 13:45 DCW (Rec: 07/22/19 14:30 DCW [id number]) Cardio Equipment Recumbent Elliptical ([employer]) Duration (Minutes) 4 Resistance 3 Seat Position 9 Gym Equipment Shuttle Balance Blue Details Wide BRAIN, Staggered Therapeutic Exercises Standing Exercises Hamstring Curls Standing Exercise Name HS Curls Side bilateral Resistance 2# Toe-taps Standing Exercise Name Toe-taps Side bilateral Resistance 2# Equipment Used 6 step Other Exercises Hurdles Other Exercise Name Hurdles Resistance 2# Comments Fwd, Lateral Resisted Ambulation Other Exercise Name Resisted Side-stepping Resistance Yellow Equipment Used T-band Neuro Re-Education Treatment Balance Activities Tandem Ambulation Details Tandem Ambulation Equipment @ rail SLS Details SLS Equipment @ rail PT-OP-T Assessment and Plan Start: 06/29/19 13:51 Freq: Status: Active Protocol: Document 07/22/19 13:45 DCW (Rec: 07/22/19 14:30 DCW [id number]) Physical Therapy Assessment Impairments Impairments Activity Tolerance,Balance, Functional Mobility,Gait, Strength Other Concerns Fall Risk Yes, per Waters (42/56) and DGI (18/24) Barriers to Rehabilitation Hx of falls, Hx of Lung Ca, Hx of Prostate Ca, currently receiving Chemo Goals Three Impairment Pt experiences weakness and decreased stability following Chemo Engine Room Helper Goal (LTG) Pt to score >20/24 on DGI and >49/56 on Waters to demonstrate decreased falls risk LTG Duration 08/30/18 Two Impairment Pt has increased difficulty rising after sitting on toilet Intermediate Goal (LTG) Pt to improve gross LE MMT to 4/5 to improve sit->stand ability LTG Duration 08/30/18 One Impairment Pt does not have an appropriate home exercise program Short Term Goal (STG) Pt to be independent and compliant with an appropriate HEP STG Duration 07/30/18 Assessment Summary Assessment Pt fatigued more well managed today, fewer rest breaks needed, increased focus on balance during treatment session. Physical Therapy Plan Frequency and Duration Frequency of Treatment 2x/Week Duration of Treatment 10 weeks Plan of Care Start Date 06/29/19 Plan of Care End Date 09/07/19 Therapeutic Interventions Therapeutic Interventions Aquatic Therapy,Balance Training,Home Exercise Program ,Manual Therapy,Neuromuscular Re-education,Patient/Caregiver Education,Self-Care/Home Management,Soft Tissue Mobilization,Therapeutic Exercises Modalities Cold Pack/Ice Massage,Hot Packs Next Visit Focus/Plan Next Note Type Treatment Note Next Visit Plan Balance training, strengthening, increased activity tolerance
--- NOTE | 2019-07-29 14:30 | PT.OTN ---
Current Diagnoses Malignant neoplasm of unspecified part of left bronchus or lung (07/29/19) Idiopathic progressive neuropathy (07/29/19) Muscle weakness (generalized) (07/29/19) Other abnormalities of gait and mobility (07/29/19) Chronic fatigue, unspecified (07/29/19) History of falling (07/29/19) Physical Therapy Treatment Note PT-OP-A Visit Information Start: 06/29/19 13:51 Freq: Status: Active Protocol: Document 07/29/19 13:45 DCW (Rec: 07/29/19 14:30 DCW [id number]) Out-Patient Physical Therapy Visit Information Visit Information Visit Type Treatment Note Visit Start Time 13:45 Visit Stop Time 14:30 Total Visit Minutes 45 Visit Number 4 Number of FARM MACHINE OPERATOR Visits 0 Evaluation Information Evaluation Date 06/29/19 PT-OP-B Current Condition Start: 06/29/19 13:51 Freq: Status: Active Protocol: Document 06/29/19 10:30 DCW (Rec: 06/29/19 14:27 DCW [id number]) Current Condition History of Current Condition Onset Date 3 weeks Current Complaints weakness and imbalance following chemotherapy History of Current Condition Pt is a 78 year old male presenting with complaints of a waxing and waning imbalance and weakness associated with his current course of chemotherapy. Per his oncology notes, pt has a history of a relatively small primary squamous lung cancer but was found to have positive N2 node at the time of endobronchial ultrasound. He underwent radiation therapy but had declined concurrent chemotherapy. At the completion of his radiation, he was open to the possibility of sequential therapy and has since undergone his 2nd cycle of treatment (Ronald Miguel MD, 06/09/19). Pt reports that he felt okay following his first round of chemo, but the after the second, was weak and shaking and wouldn't stand for about a week. After his recent third round, he performed a lot of LAQ, SLR , and mini-squats, and felt like he recovered much more quickly. Pt requested a referral to PT so he could learn more exercises to help strengthen his legs, unfortunately due to a delay getting in for an appointment, his fourth (and planned final ) round of chemo is tomorrow, but pt is hopeful that following that, he will be feeling well enough that he can continue with his currently scheduled PT. Pt also admits to two falls in his kitchen within the past 1. 5 years, and three or four other falls out in public over the last five years or so. Prior Treatments and Tests Radiation and chemotherapy Treatment Goals Patient/Caregiver Goals Pt wants to limit weakness and fatigue following chemotherapy, and to improve walking and stability. Personal Factors Other Personal Factors That May Effect COPD, Hx Prostate Ca s/p Therapy/Recovery orchiectomy, radiation and chemo secondary to squamous cell lung cancer. PT-OP-C Subjective Start: 06/29/19 13:51 Freq: Status: Active Protocol: Document 07/29/19 13:45 DCW (Rec: 07/29/19 14:30 DCW [id number]) OP-PT Subjective Patient Comments Patient Comments Pt notes today is better than most, admits he is still weak, but he doesn't have that pain down in my legs. PT-OP-D Balance Start: 06/29/19 13:51 Freq: Status: Active Protocol: Document 06/29/19 10:30 DCW (Rec: 06/29/19 14:27 DCW [id number]) Balance Tests Waters Balance Test Waters Balance Test Score 42 Waters Impairment Rating 20 to 39% Impaired (Score 34- 44) Waters Balance Assessment Evaluation Sitting to Standing Ability Independent w/Hands Unsupported Stance Supervision- 2 minutes Sitting Unsupported, Feet on Floor Safely- 2 minutes Standing to Sitting Ability Assist, Control w/Hands Transfer Ability Safely, Hand Use Unsupported Stance- Eyes Closed Supervision, 10 seconds Unsupported Stance- Eyes Open Independent, <30 seconds Reaching Forward Standing Safely, 5 inches Pick- Up Object From Floor Supervision Look Behind Shoulder - Standing Shifts Weight Well Turning 360 Degrees Turns Bilateral, < 4 secs Unsupported Stance, Alternating Feet on (I)- 8 Steps in 20 secs Stair Unsupported Tandem Stance Small Step- 30 seconds Unilateral Leg Stance Lifts Leg/Unable to Hold Total Score Waters Total Score (out of 56 points) 42 Waters Impairment Rating 20 to 39% Impaired (Score 34- 44) PT-OP-E Functional Tests Start: 06/29/19 13:51 Freq: Status: Active Protocol: Document 06/29/19 10:30 DCW (Rec: 06/29/19 14:27 DCW [id number]) Functional Tests Dynamic Gait Index (DGI) Score PT-OP-M Strength Start: 06/29/19 13:51 Freq: Status: Active Protocol: Document 06/29/19 10:30 DCW (Rec: 06/29/19 14:27 DCW [id number]) Hip Strength Hip Manual Muscle Testing Right Flexion (L2) 4- Good- Abduction 4 Good Adduction 4- Good- External Rotation 4- Good- Internal Rotation 4- Good- Left Flexion (L2) 4 Good Abduction 4- Good- Adduction 4- Good- External Rotation 4- Good- Internal Rotation 4- Good- Knee Strength Knee Manual Muscle Testing Right Flexion (S2) 4- Good- Extension (L3) 4 Good Left Flexion (S2) 4- Good- Extension (L3) 4 Good Ankle/Foot Strength Ankle and Foot Manual Muscle Testing Right Dorsiflexion (L4) 3+ Fair+ Plantarflexion (S1) 3 Fair Left Dorsiflexion (L4) 3+ Fair+ Plantarflexion (S1) 3 Fair PT-OP-Q Treatments Start: 06/29/19 13:51 Freq: Status: Active Protocol: Document 07/29/19 13:45 DCW (Rec: 07/29/19 14:30 DCW [id number]) Cardio Equipment Recumbent Elliptical ([employer]) Duration (Minutes) 4 Resistance 3 Seat Position 9 Gym Equipment Shuttle Recovery Bilateral Heel Raises Resistance 50# Unilateral Squats Resistance 37# Shuttle Recovery Platform Stable Bilateral Squats Resistance 75# Shuttle Recovery Platform Stable Shuttle Balance Blue Details Wide BRAIN, Staggered Therapeutic Exercises Standing Exercises Marching Standing Exercise Name Standing Marching Resistance 4# Equipment Used @ rail Hamstring Curls Standing Exercise Name HS Curls Side bilateral Resistance 4# Toe-taps Standing Exercise Name Toe-taps Side bilateral Resistance 4# Equipment Used 6 step Other Exercises Hurdles Other Exercise Name Hurdles Resistance 2# Comments Fwd, Lateral Resisted Ambulation Other Exercise Name Resisted Side-stepping Resistance Yellow Equipment Used T-band Neuro Re-Education Treatment Balance Activities Foam Stance Details Narrow BRAIN /c head turns SLS Details SLS Equipment @ rail PT-OP-T Assessment and Plan Start: 06/29/19 13:51 Freq: Status: Active Protocol: Document 07/29/19 13:45 DCW (Rec: 07/29/19 14:30 DCW [id number]) Physical Therapy Assessment Impairments Impairments Activity Tolerance,Balance, Functional Mobility,Gait, Strength Other Concerns Fall Risk Yes, per Waters (42/56) and DGI (18/) Barriers to Rehabilitation Hx of falls, Hx of Lung Ca, Hx of Prostate Ca, currently receiving Chemo Goals Three Impairment Pt experiences weakness and decreased stability following Chemo Director Of Field Sales Goal (LTG) Pt to score >20/24 on DGI and >49/56 on Waters to demonstrate decreased falls risk LTG Duration 08/30/18 Two Impairment Pt has increased difficulty rising after sitting on toilet Director Of Field Sales Goal (LTG) Pt to improve gross LE MMT to 4/5 to improve sit->stand ability LTG Duration 08/30/18 One Impairment Pt does not have an appropriate home exercise program Short Term Goal (STG) Pt to be independent and compliant with an appropriate HEP STG Duration 07/30/18 Assessment Summary Assessment Pt still experiencing less fatigue during his PT session, improved strength in his bilateral legs today. Physical Therapy Plan Frequency and Duration Frequency of Treatment 2x/Week Duration of Treatment 10 weeks Plan of Care Start Date 06/29/19 Plan of Care End Date 09/07/19 Therapeutic Interventions Therapeutic Interventions Aquatic Therapy,Balance Training,Home Exercise Program ,Manual Therapy,Neuromuscular Re-education,Patient/Caregiver Education,Self-Care/Home Management,Soft Tissue Mobilization,Therapeutic Exercises Modalities Cold Pack/Ice Massage,Hot Packs Next Visit Focus/Plan Next Note Type Treatment Note Next Visit Plan Balance training, strengthening, increased activity tolerance
--- NOTE | 2019-08-05 17:32 | PT.OTN ---
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) Muscle weakness (generalized) (08/05/19) Other abnormalities of gait and mobility (08/05/19) Chronic fatigue, unspecified (08/05/19) History of falling (08/05/19) Physical Therapy Treatment Note PT-OP-A Visit Information Start: 06/29/19 13:51 Freq: Status: Active Protocol: Document 08/05/19 16:45 DCW (Rec: 08/05/19 17:32 DCW [id number]) Out-Patient Physical Therapy Visit Information Visit Information Visit Type Treatment Note Visit Start Time 16:45 Visit Stop Time 17:30 Total Visit Minutes 45 Visit Number 5 Number of DIVISION ORDER TECHNICIAN Visits 0 Evaluation Information Evaluation Date 06/29/19 PT-OP-B Current Condition Start: 06/29/19 13:51 Freq: Status: Active Protocol: Document 06/29/19 10:30 DCW (Rec: 06/29/19 14:27 DCW [id number]) Current Condition History of Current Condition Onset Date 3 weeks Current Complaints weakness and imbalance following chemotherapy History of Current Condition Pt is a 78 year old male presenting with complaints of a waxing and waning imbalance and weakness associated with his current course of chemotherapy. Per his oncology notes, pt has a history of a relatively small primary squamous lung cancer but was found to have positive N2 node at the time of endobronchial ultrasound. He underwent radiation therapy but had declined concurrent chemotherapy. At the completion of his radiation, he was open to the possibility of sequential therapy and has since undergone his 2nd cycle of treatment (Ronald Miguel MD, 06/09/19). Pt reports that he felt okay following his first round of chemo, but the after the second, was weak and shaking and wouldn't stand for about a week. After his recent third round, he performed a lot of LAQ, SLR , and mini-squats, and felt like he recovered much more quickly. Pt requested a referral to PT so he could learn more exercises to help strengthen his legs, unfortunately due to a delay getting in for an appointment, his fourth (and planned final ) round of chemo is tomorrow, but pt is hopeful that following that, he will be feeling well enough that he can continue with his currently scheduled PT. Pt also admits to two falls in his kitchen within the past 1. 5 years, and three or four other falls out in public over the last five years or so. Prior Treatments and Tests Radiation and chemotherapy Treatment Goals Patient/Caregiver Goals Pt wants to limit weakness and fatigue following chemotherapy, and to improve walking and stability. Personal Factors Other Personal Factors That May Effect COPD, Hx Prostate Ca s/p Therapy/Recovery orchiectomy, radiation and chemo secondary to squamous cell lung cancer. PT-OP-C Subjective Start: 06/29/19 13:51 Freq: Status: Active Protocol: Document 08/05/19 16:45 DCW (Rec: 08/05/19 17:32 DCW [id number]) OP-PT Subjective Patient Comments Patient Comments Just like always, had a half- bad day. PT-OP-D Balance Start: 06/29/19 13:51 Freq: Status: Active Protocol: Document 06/29/19 10:30 DCW (Rec: 06/29/19 14:27 DCW [id number]) Balance Tests Waters Balance Test Waters Balance Test Score 42 Waters Impairment Rating 20 to 39% Impaired (Score 34- 44) Waters Balance Assessment Evaluation Sitting to Standing Ability Independent w/Hands Unsupported Stance Supervision- 2 minutes Sitting Unsupported, Feet on Floor Safely- 2 minutes Standing to Sitting Ability Assist, Control w/Hands Transfer Ability Safely, Hand Use Unsupported Stance- Eyes Closed Supervision, 10 seconds Unsupported Stance- Eyes Open Independent, <30 seconds Reaching Forward Standing Safely, 5 inches Pick- Up Object From Floor Supervision Look Behind Shoulder - Standing Shifts Weight Well Turning 360 Degrees Turns Bilateral, < 4 secs Unsupported Stance, Alternating Feet on (I)- 8 Steps in 20 secs Stair Unsupported Tandem Stance Small Step- 30 seconds Unilateral Leg Stance Lifts Leg/Unable to Hold Total Score Waters Total Score (out of 56 points) 42 Waters Impairment Rating 20 to 39% Impaired (Score 34- 44) PT-OP-E Functional Tests Start: 06/29/19 13:51 Freq: Status: Active Protocol: Document 06/29/19 10:30 DCW (Rec: 06/29/19 14:27 DCW [id number]) Functional Tests Dynamic Gait Index (DGI) Score 1824 PT-OP-M Strength Start: 06/29/19 13:51 Freq: Status: Active Protocol: Document 06/29/19 10:30 DCW (Rec: 06/29/19 14:27 DCW [id number]) Hip Strength Hip Manual Muscle Testing Right Flexion (L2) 4- Good- Abduction 4 Good Adduction 4- Good- External Rotation 4- Good- Internal Rotation 4- Good- Left Flexion (L2) 4 Good Abduction 4- Good- Adduction 4- Good- External Rotation 4- Good- Internal Rotation 4- Good- Knee Strength Knee Manual Muscle Testing Right Flexion (S2) 4- Good- Extension (L3) 4 Good Left Flexion (S2) 4- Good- Extension (L3) 4 Good Ankle/Foot Strength Ankle and Foot Manual Muscle Testing Right Dorsiflexion (L4) 3+ Fair+ Plantarflexion (S1) 3 Fair Left Dorsiflexion (L4) 3+ Fair+ Plantarflexion (S1) 3 Fair PT-OP-Q Treatments Start: 06/29/19 13:51 Freq: Status: Active Protocol: Document 08/05/19 16:45 DCW (Rec: 08/05/19 17:32 DCW [id number]) Cardio Equipment Recumbent Elliptical (Biodex) Duration (Minutes) 5 Resistance 3 Seat Position 11 Gym Equipment Shuttle Recovery Bilateral Heel Raises Resistance 50# Unilateral Squats Resistance 37# Shuttle Recovery Platform Stable Bilateral Squats Resistance 75# Shuttle Recovery Platform Stable Shuttle Balance Blue Details Wide BRAIN, Staggered Therapeutic Exercises Other Exercises Hurdles Other Exercise Name Hurdles Resistance 2# Comments Fwd, Lateral Resisted Ambulation Other Exercise Name Resisted Side-stepping Resistance Yellow Equipment Used T-band Neuro Re-Education Treatment Balance Activities Foam Stance Details Narrow BRAIN /c head turns Surface Mina foam Tandem Ambulation Details Tandem Ambulation Equipment @ rail PT-OP-T Assessment and Plan Start: 06/29/19 13:51 Freq: Status: Active Protocol: Document 08/05/19 16:45 DCW (Rec: 08/05/19 17:32 DCW [id number]) Physical Therapy Assessment Impairments Impairments Activity Tolerance,Balance, Functional Mobility,Gait, Strength Other Concerns Fall Risk Yes, per Waters (42/56) and DGI (18/) Barriers to Rehabilitation Hx of falls, Hx of Lung Ca, Hx of Prostate Ca, currently receiving Chemo Goals Three Impairment Pt experiences weakness and decreased stability following Chemo Residential Goal (LTG) Pt to score >20/24 on DGI and >49/56 on Waters to demonstrate decreased falls risk LTG Duration 08/30/18 Two Impairment Pt has increased difficulty rising after sitting on toilet Residential Goal (LTG) Pt to improve gross LE MMT to 4/5 to improve sit->stand ability LTG Duration 08/30/18 One Impairment Pt does not have an appropriate home exercise program Short Term Goal (STG) Pt to be independent and compliant with an appropriate HEP STG Duration 07/30/18 Assessment Summary Assessment Pt requiring fewer rest breaks , however still complains of ongoing fatigue and weakness. Pt insistent he was told his chemo side-effects would disappear within the next few weeks, and is getting frustrated that he is still struggling with most activities. Physical Therapy Plan Frequency and Duration Frequency of Treatment 2x/Week Duration of Treatment 10 weeks Plan of Care Start Date 06/29/19 Plan of Care End Date 09/07/19 Therapeutic Interventions Therapeutic Interventions Aquatic Therapy,Balance Training,Home Exercise Program ,Manual Therapy,Neuromuscular Re-education,Patient/Caregiver Education,Self-Care/Home Management,Soft Tissue Mobilization,Therapeutic Exercises Modalities Cold Pack/Ice Massage,Hot Packs Next Visit Focus/Plan Next Note Type Treatment Note Next Visit Plan Balance training, strengthening, increased activity tolerance
--- NOTE | 2019-08-24 12:01 | PT.OTN ---
Current Diagnoses Malignant neoplasm of unspecified part of left bronchus or lung (08/24/19) Idiopathic progressive neuropathy (08/24/19) Muscle weakness (generalized) (08/24/19) Other abnormalities of gait and mobility (08/24/19) Chronic fatigue, unspecified (08/24/19) History of falling (08/24/19) Physical Therapy Treatment Note PT-OP-A Visit Information Start: 06/29/19 13:51 Freq: Status: Active Protocol: Document 08/24/19 11:20 (Rec: 08/24/19 12:01 [id number]) Out-Patient Physical Therapy Visit Information Visit Information Visit Type Treatment Note Visit Start Time 11:20 Visit Stop Time 12:01 Total Visit Minutes 41 Visit Number 6 Number of RIVETER HAND Visits 0 PT-OP-B Current Condition Start: 06/29/19 13:51 Freq: Status: Active Protocol: Document 06/29/19 10:30 DCW (Rec: 06/29/19 14:27 DCW [id number]) Current Condition History of Current Condition Onset Date 3 weeks Current Complaints weakness and imbalance following chemotherapy History of Current Condition Pt is a 78 year old male presenting with complaints of a waxing and waning imbalance and weakness associated with his current course of chemotherapy. Per his oncology notes, pt has a history of a relatively small primary squamous lung cancer but was found to have positive N2 node at the time of endobronchial ultrasound. He underwent radiation therapy but had declined concurrent chemotherapy. At the completion of his radiation, he was open to the possibility of sequential therapy and has since undergone his 2nd cycle of treatment (Ronald Miguel MD, 06/09/19). Pt reports that he felt okay following his first round of chemo, but the after the second, was weak and shaking and wouldn't stand for about a week. After his recent third round, he performed a lot of LAQ, SLR , and mini-squats, and felt like he recovered much more quickly. Pt requested a referral to PT so he could learn more exercises to help strengthen his legs, unfortunately due to a delay getting in for an appointment, his fourth (and planned final ) round of chemo is tomorrow, but pt is hopeful that following that, he will be feeling well enough that he can continue with his currently scheduled PT. Pt also admits to two falls in his kitchen within the past 1. 5 years, and three or four other falls out in public over the last five years or so. Prior Treatments and Tests Radiation and chemotherapy Treatment Goals Patient/Caregiver Goals Pt wants to limit weakness and fatigue following chemotherapy, and to improve walking and stability. Personal Factors Other Personal Factors That May Effect COPD, Hx Prostate Ca s/p Therapy/Recovery orchiectomy, radiation and chemo secondary to squamous cell lung cancer. PT-OP-C Subjective Start: 06/29/19 13:51 Freq: Status: Active Protocol: Document 08/24/19 11:20 (Rec: 08/24/19 12:01 [id number]) OP-PT Subjective Patient Comments Patient Comments some bad days and good days. The weakness on L lower leg and balance still bother me. I have been walking more recently. Patient Reported Progress Improving PT-OP-D Balance Start: 06/29/19 13:51 Freq: Status: Active Protocol: Document 06/29/19 10:30 DCW (Rec: 06/29/19 14:27 DCW [id number]) Balance Tests Waters Balance Test Waters Balance Test Score 42 Waters Impairment Rating 20 to 39% Impaired (Score 34- 44) Waters Balance Assessment Evaluation Sitting to Standing Ability Independent w/Hands Unsupported Stance Supervision- 2 minutes Sitting Unsupported, Feet on Floor Safely- 2 minutes Standing to Sitting Ability Assist, Control w/Hands Transfer Ability Safely, Hand Use Unsupported Stance- Eyes Closed Supervision, 10 seconds Unsupported Stance- Eyes Open Independent, <30 seconds Reaching Forward Standing Safely, 5 inches Pick- Up Object From Floor Supervision Look Behind Shoulder - Standing Shifts Weight Well Turning 360 Degrees Turns Bilateral, < 4 secs Unsupported Stance, Alternating Feet on (I)- 8 Steps in 20 secs Stair Unsupported Tandem Stance Small Step- 30 seconds Unilateral Leg Stance Lifts Leg/Unable to Hold Total Score Waters Total Score (out of 56 points) 42 Waters Impairment Rating 20 to 39% Impaired (Score 34- 44) PT-OP-E Functional Tests Start: 06/29/19 13:51 Freq: Status: Active Protocol: Document 06/29/19 10:30 DCW (Rec: 06/29/19 14:27 DCW [id number]) Functional Tests Dynamic Gait Index (DGI) Score 18/24 PT-OP-M Strength Start: 06/29/19 13:51 Freq: Status: Active Protocol: Document 06/29/19 10:30 DCW (Rec: 06/29/19 14:27 DCW [id number]) Hip Strength Hip Manual Muscle Testing Right Flexion (L2) 4- Good- Abduction 4 Good Adduction 4- Good- External Rotation 4- Good- Internal Rotation 4- Good- Left Flexion (L2) 4 Good Abduction 4- Good- Adduction 4- Good- External Rotation 4- Good- Internal Rotation 4- Good- Knee Strength Knee Manual Muscle Testing Right Flexion (S2) 4- Good- Extension (L3) 4 Good Left Flexion (S2) 4- Good- Extension (L3) 4 Good Ankle/Foot Strength Ankle and Foot Manual Muscle Testing Right Dorsiflexion (L4) 3+ Fair+ Plantarflexion (S1) 3 Fair Left Dorsiflexion (L4) 3+ Fair+ Plantarflexion (S1) 3 Fair PT-OP-Q Treatments Start: 06/29/19 13:51 Freq: Status: Active Protocol: Document 08/24/19 11:20 (Rec: 08/24/19 12:01 [id number]) Cardio Equipment Recumbent Stepper (Sci-Fit) Duration (Minutes) 6 Resistance 5 Gym Equipment Shuttle Recovery Unilateral Squats Resistance #50-62 Shuttle Recovery Platform Stable Reps/Time 12 x2, then 8 x1 Therapeutic Exercises Standing Exercises step up Standing Exercise Name 6' step with R UE on rail Side bilateral Toe-taps Standing Exercise Name Toe-taps Side bilateral Resistance 4# Equipment Used 6 step Neuro Re-Education Treatment Balance Activities high knee walk Details facilitate SLS Equipment @rail Comments PT with CGA Foam Stance Details Narrow BRAIN /c head turns Surface Mina foam Comments with PT perturbations ( moderate) Tandem Ambulation Details Tandem Ambulation Equipment @ rail Comments PT with CGA SLS Details SLS Equipment @ rail Comments PT with CGA PT-OP-T Assessment and Plan Start: 06/29/19 13:51 Freq: Status: Active Protocol: Document 08/24/19 11:20 HH (Rec: 08/24/19 12:01 [id number]) Physical Therapy Assessment Goals Three Impairment Pt experiences weakness and decreased stability following Chemo Shareholder Goal (LTG) Pt to score >20/24 on DGI and >49/56 on Waters to demonstrate decreased falls risk LTG Duration 08/30/18 Two Impairment Pt has increased difficulty rising after sitting on toilet Shareholder Goal (LTG) Pt to improve gross LE MMT to 4/5 to improve sit->stand ability LTG Duration 08/30/18 One Impairment Pt does not have an appropriate home exercise program Short Term Goal (STG) Pt to be independent and compliant with an appropriate HEP STG Duration 07/30/18 Assessment Summary Assessment Pt nichole tx well but needed CGA for most balancing ex. Noticead pt has poor recovery balance. Tx focused on ankle strategy balancing training and SL strengthening.
--- NOTE | 2019-08-26 14:53 | PT.OTN ---
Current Diagnoses Malignant neoplasm of unspecified part of left bronchus or lung (08/26/19) Idiopathic progressive neuropathy (08/26/19) Muscle weakness (generalized) (08/26/19) Other abnormalities of gait and mobility (08/26/19) Chronic fatigue, unspecified (08/26/19) History of falling (08/26/19) Physical Therapy Treatment Note PT-OP-A Visit Information Start: 06/29/19 13:51 Freq: Status: Active Protocol: Document 08/26/19 14:30 DCW (Rec: 08/26/19 14:53 DCW [id number]) Out-Patient Physical Therapy Visit Information Visit Information Visit Type Treatment Note Visit Start Time 14:30 Visit Stop Time 14:42 Total Visit Minutes 12 Visit Number 7 Number of ENVELOPE STAMPING MACHINE OPERATOR Visits 0 Evaluation Information Evaluation Date 06/29/19 PT-OP-B Current Condition Start: 06/29/19 13:51 Freq: Status: Active Protocol: Document 06/29/19 10:30 DCW (Rec: 06/29/19 14:27 DCW [id number]) Current Condition History of Current Condition Onset Date 3 weeks Current Complaints weakness and imbalance following chemotherapy History of Current Condition Pt is a 78 year old male presenting with complaints of a waxing and waning imbalance and weakness associated with his current course of chemotherapy. Per his oncology notes, pt has a history of a relatively small primary squamous lung cancer but was found to have positive N2 node at the time of endobronchial ultrasound. He underwent radiation therapy but had declined concurrent chemotherapy. At the completion of his radiation, he was open to the possibility of sequential therapy and has since undergone his 2nd cycle of treatment (Ronald Miguel MD, 06/09/19). Pt reports that he felt okay following his first round of chemo, but the after the second, was weak and shaking and wouldn't stand for about a week. After his recent third round, he performed a lot of LAQ, SLR , and mini-squats, and felt like he recovered much more quickly. Pt requested a referral to PT so he could learn more exercises to help strengthen his legs, unfortunately due to a delay getting in for an appointment, his fourth (and planned final ) round of chemo is tomorrow, but pt is hopeful that following that, he will be feeling well enough that he can continue with his currently scheduled PT. Pt also admits to two falls in his kitchen within the past 1. 5 years, and three or four other falls out in public over the last five years or so. Prior Treatments and Tests Radiation and chemotherapy Treatment Goals Patient/Caregiver Goals Pt wants to limit weakness and fatigue following chemotherapy, and to improve walking and stability. Personal Factors Other Personal Factors That May Effect COPD, Hx Prostate Ca s/p Therapy/Recovery orchiectomy, radiation and chemo secondary to squamous cell lung cancer. PT-OP-C Subjective Start: 06/29/19 13:51 Freq: Status: Active Protocol: Document 08/26/19 14:30 DCW (Rec: 08/26/19 14:53 DCW [id number]) OP-PT Subjective Patient Comments Patient Comments I'm much more tired than usual today. PT-OP-D Balance Start: 06/29/19 13:51 Freq: Status: Active Protocol: Document 06/29/19 10:30 DCW (Rec: 06/29/19 14:27 DCW [id number]) Balance Tests Waters Balance Test Waters Balance Test Score 42 Waters Impairment Rating 20 to 39% Impaired (Score 34- 44) Waters Balance Assessment Evaluation Sitting to Standing Ability Independent w/Hands Unsupported Stance Supervision- 2 minutes Sitting Unsupported, Feet on Floor Safely- 2 minutes Standing to Sitting Ability Assist, Control w/Hands Transfer Ability Safely, Hand Use Unsupported Stance- Eyes Closed Supervision, 10 seconds Unsupported Stance- Eyes Open Independent, <30 seconds Reaching Forward Standing Safely, 5 inches Pick- Up Object From Floor Supervision Look Behind Shoulder - Standing Shifts Weight Well Turning 360 Degrees Turns Bilateral, < 4 secs Unsupported Stance, Alternating Feet on (I)- 8 Steps in 20 secs Stair Unsupported Tandem Stance Small Step- 30 seconds Unilateral Leg Stance Lifts Leg/Unable to Hold Total Score Waters Total Score (out of 56 points) 42 Waters Impairment Rating 20 to 39% Impaired (Score 34- 44) PT-OP-E Functional Tests Start: 06/29/19 13:51 Freq: Status: Active Protocol: Document 06/29/19 10:30 DCW (Rec: 06/29/19 14:27 DCW [id number]) Functional Tests Dynamic Gait Index (DGI) Score 1824 PT-OP-M Strength Start: 06/29/19 13:51 Freq: Status: Active Protocol: Document 06/29/19 10:30 DCW (Rec: 06/29/19 14:27 DCW [id number]) Hip Strength Hip Manual Muscle Testing Right Flexion (L2) 4- Good- Abduction 4 Good Adduction 4- Good- External Rotation 4- Good- Internal Rotation 4- Good- Left Flexion (L2) 4 Good Abduction 4- Good- Adduction 4- Good- External Rotation 4- Good- Internal Rotation 4- Good- Knee Strength Knee Manual Muscle Testing Right Flexion (S2) 4- Good- Extension (L3) 4 Good Left Flexion (S2) 4- Good- Extension (L3) 4 Good Ankle/Foot Strength Ankle and Foot Manual Muscle Testing Right Dorsiflexion (L4) 3+ Fair+ Plantarflexion (S1) 3 Fair Left Dorsiflexion (L4) 3+ Fair+ Plantarflexion (S1) 3 Fair PT-OP-Q Treatments Start: 06/29/19 13:51 Freq: Status: Active Protocol: Document 08/26/19 14:30 DCW (Rec: 08/26/19 14:53 DCW [id number]) Cardio Equipment Recumbent Elliptical (Biodex) Duration (Minutes) 3 Resistance 4 Seat Position 10 Other stopped secondary to fatigue Gym Equipment Shuttle Balance Blue Details Wide BRAIN, Staggered PT-OP-T Assessment and Plan Start: 06/29/19 13:51 Freq: Status: Active Protocol: Document 08/26/19 14:30 DCW (Rec: 08/26/19 14:53 DCW [id number]) Physical Therapy Assessment Impairments Impairments Activity Tolerance,Balance, Functional Mobility,Gait, Strength Other Concerns Fall Risk Yes, per Waters (42/56) and DGI (18/24) Barriers to Rehabilitation Hx of falls, Hx of Lung Ca, Hx of Prostate Ca, currently receiving Chemo Goals Three Impairment Pt experiences weakness and decreased stability following Chemo Custodial Goal (LTG) Pt to score >20/24 on DGI and >49/56 on Waters to demonstrate decreased falls risk LTG Duration 08/30/18 Two Impairment Pt has increased difficulty rising after sitting on toilet Custodial Goal (LTG) Pt to improve gross LE MMT to 4/5 to improve sit->stand ability LTG Duration 08/30/18 One Impairment Pt does not have an appropriate home exercise program Short Term Goal (STG) Pt to be independent and compliant with an appropriate HEP STG Duration 07/30/18 Assessment Summary Assessment After attempting minimal activity, pt determined that he was too fatigued to do anything else, and requested an early end to his session. Physical Therapy Plan Frequency and Duration Frequency of Treatment 2x/Week Duration of Treatment 10 weeks Plan of Care Start Date 06/29/19 Plan of Care End Date 09/07/19 Therapeutic Interventions Therapeutic Interventions Aquatic Therapy,Balance Training,Home Exercise Program ,Manual Therapy,Neuromuscular Re-education,Patient/Caregiver Education,Self-Care/Home Management,Soft Tissue Mobilization,Therapeutic Exercises Modalities Cold Pack/Ice Massage,Hot Packs Next Visit Focus/Plan Next Note Type Treatment Note Next Visit Plan Balance training, strengthening, increased activity tolerance
--- NOTE | 2019-08-30 16:06 | PT.OTN ---
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) Muscle weakness (generalized) (08/30/19) Other abnormalities of gait and mobility (08/30/19) Chronic fatigue, unspecified (08/30/19) History of falling (08/30/19) Physical Therapy Treatment Note PT-OP-A Visit Information Start: 06/29/19 13:51 Freq: Status: Active Protocol: Document 08/30/19 15:30 DCW (Rec: 08/30/19 16:06 DCW [id number]) Out-Patient Physical Therapy Visit Information Visit Information Visit Type Treatment Note Visit Note 15 minutes late Visit Start Time 15:30 Visit Stop Time 16:00 Total Visit Minutes 13 Visit Number 8 Number of ASSISTED LIVING NURSING DIRECTOR Visits 0 Evaluation Information Evaluation Date 06/29/19 PT-OP-B Current Condition Start: 06/29/19 13:51 Freq: Status: Active Protocol: Document 06/29/19 10:30 DCW (Rec: 06/29/19 14:27 DCW [id number]) Current Condition History of Current Condition Onset Date 3 weeks Current Complaints weakness and imbalance following chemotherapy History of Current Condition Pt is a 78 year old male presenting with complaints of a waxing and waning imbalance and weakness associated with his current course of chemotherapy. Per his oncology notes, pt has a history of a relatively small primary squamous lung cancer but was found to have positive N2 node at the time of endobronchial ultrasound. He underwent radiation therapy but had declined concurrent chemotherapy. At the completion of his radiation, he was open to the possibility of sequential therapy and has since undergone his 2nd cycle of treatment (Ronald Miguel MD, 06/09/19). Pt reports that he felt okay following his first round of chemo, but the after the second, was weak and shaking and wouldn't stand for about a week. After his recent third round, he performed a lot of LAQ, SLR , and mini-squats, and felt like he recovered much more quickly. Pt requested a referral to PT so he could learn more exercises to help strengthen his legs, unfortunately due to a delay getting in for an appointment, his fourth (and planned final ) round of chemo is tomorrow, but pt is hopeful that following that, he will be feeling well enough that he can continue with his currently scheduled PT. Pt also admits to two falls in his kitchen within the past 1. 5 years, and three or four other falls out in public over the last five years or so. Prior Treatments and Tests Radiation and chemotherapy Treatment Goals Patient/Caregiver Goals Pt wants to limit weakness and fatigue following chemotherapy, and to improve walking and stability. Personal Factors Other Personal Factors That May Effect COPD, Hx Prostate Ca s/p Therapy/Recovery orchiectomy, radiation and chemo secondary to squamous cell lung cancer. PT-OP-C Subjective Start: 06/29/19 13:51 Freq: Status: Active Protocol: Document 08/30/19 15:30 DCW (Rec: 08/30/19 16:06 DCW [id number]) OP-PT Subjective Patient Comments Patient Comments Pt notes he is feeling much better than he was last week. PT-OP-D Balance Start: 06/29/19 13:51 Freq: Status: Active Protocol: Document 06/29/19 10:30 DCW (Rec: 06/29/19 14:27 DCW [id number]) Balance Tests Waters Balance Test Waters Balance Test Score 42 Waters Impairment Rating 20 to 39% Impaired (Score 34- 44) Waters Balance Assessment Evaluation Sitting to Standing Ability Independent w/Hands Unsupported Stance Supervision- 2 minutes Sitting Unsupported, Feet on Floor Safely- 2 minutes Standing to Sitting Ability Assist, Control w/Hands Transfer Ability Safely, Hand Use Unsupported Stance- Eyes Closed Supervision, 10 seconds Unsupported Stance- Eyes Open Independent, <30 seconds Reaching Forward Standing Safely, 5 inches Pick- Up Object From Floor Supervision Look Behind Shoulder - Standing Shifts Weight Well Turning 360 Degrees Turns Bilateral, < 4 secs Unsupported Stance, Alternating Feet on (I)- 8 Steps in 20 secs Stair Unsupported Tandem Stance Small Step- 30 seconds Unilateral Leg Stance Lifts Leg/Unable to Hold Total Score Waters Total Score (out of 56 points) 42 Waters Impairment Rating 20 to 39% Impaired (Score 34- 44) PT-OP-E Functional Tests Start: 06/29/19 13:51 Freq: Status: Active Protocol: Document 06/29/19 10:30 DCW (Rec: 06/29/19 14:27 DCW [id number]) Functional Tests Dynamic Gait Index (DGI) Score 18/24 PT-OP-M Strength Start: 06/29/19 13:51 Freq: Status: Active Protocol: Document 06/29/19 10:30 DCW (Rec: 06/29/19 14:27 DCW [id number]) Hip Strength Hip Manual Muscle Testing Right Flexion (L2) 4- Good- Abduction 4 Good Adduction 4- Good- External Rotation 4- Good- Internal Rotation 4- Good- Left Flexion (L2) 4 Good Abduction 4- Good- Adduction 4- Good- External Rotation 4- Good- Internal Rotation 4- Good- Knee Strength Knee Manual Muscle Testing Right Flexion (S2) 4- Good- Extension (L3) 4 Good Left Flexion (S2) 4- Good- Extension (L3) 4 Good Ankle/Foot Strength Ankle and Foot Manual Muscle Testing Right Dorsiflexion (L4) 3+ Fair+ Plantarflexion (S1) 3 Fair Left Dorsiflexion (L4) 3+ Fair+ Plantarflexion (S1) 3 Fair PT-OP-Q Treatments Start: 06/29/19 13:51 Freq: Status: Active Protocol: Document 08/30/19 15:30 DCW (Rec: 08/30/19 16:06 DCW [id number]) Cardio Equipment Recumbent Elliptical ([employer]) Duration (Minutes) 4 Resistance 4 Seat Position 9 Gym Equipment Shuttle Recovery Bilateral Heel Raises Resistance 50# Unilateral Squats Resistance 50# Shuttle Recovery Platform Stable Bilateral Squats Resistance 75# Shuttle Recovery Platform Stable Therapeutic Exercises Standing Exercises Toe-taps Standing Exercise Name Toe-taps Side bilateral Resistance 4# Equipment Used 6 step Other Exercises Hurdles Other Exercise Name Hurdles Resistance 4# Comments Fwd, Lateral Resisted Ambulation Other Exercise Name Resisted Side-stepping Resistance Yellow Equipment Used T-band PT-OP-T Assessment and Plan Start: 06/29/19 13:51 Freq: Status: Active Protocol: Document 08/30/19 15:30 DCW (Rec: 08/30/19 16:06 DCW [id number]) Physical Therapy Assessment Impairments Impairments Activity Tolerance,Balance, Functional Mobility,Gait, Strength Other Concerns Fall Risk Yes, per Waters (42/56) and DGI () Barriers to Rehabilitation Hx of falls, Hx of Lung Ca, Hx of Prostate Ca, currently receiving Chemo Goals Three Impairment Pt experiences weakness and decreased stability following Chemo Shelter Goal (LTG) Pt to score >20/24 on DGI and >49/56 on Waters to demonstrate decreased falls risk LTG Duration 08/30/18 Two Impairment Pt has increased difficulty rising after sitting on toilet Rewriter Goal (LTG) Pt to improve gross LE MMT to 4/5 to improve sit->stand ability LTG Duration 08/30/18 One Impairment Pt does not have an appropriate home exercise program Short Term Goal (STG) Pt to be independent and compliant with an appropriate HEP STG Duration 07/30/18 Assessment Summary Assessment Pt tolerated much more activity today, had no complaints of pain or fatigue. Physical Therapy Plan Frequency and Duration Frequency of Treatment 2x/Week Duration of Treatment 10 weeks Plan of Care Start Date 06/29/19 Plan of Care End Date 09/07/19 Therapeutic Interventions Therapeutic Interventions Aquatic Therapy,Balance Training,Home Exercise Program ,Manual Therapy,Neuromuscular Re-education,Patient/Caregiver Education,Self-Care/Home Management,Soft Tissue Mobilization,Therapeutic Exercises Modalities Cold Pack/Ice Massage,Hot Packs Next Visit Focus/Plan Next Note Type Treatment Note Next Visit Plan Balance training, strengthening, increased activity tolerance
--- NOTE | 2019-09-01 14:30 | PT.OTN ---
Current Diagnoses Malignant neoplasm of unspecified part of left bronchus or lung (09/01/19) Idiopathic progressive neuropathy (09/01/19) Muscle weakness (generalized) (09/01/19) Other abnormalities of gait and mobility (09/01/19) Chronic fatigue, unspecified (09/01/19) History of falling (09/01/19) Physical Therapy Treatment Note PT-OP-A Visit Information Start: 06/29/19 13:51 Freq: Status: Active Protocol: Document 09/01/19 13:45 DCW (Rec: 09/01/19 14:30 DCW [id number]) Out-Patient Physical Therapy Visit Information Visit Information Visit Type Treatment Note Visit Start Time 13:45 Visit Stop Time 14:30 Total Visit Minutes 45 Visit Number 9 Number of SAMPLE MOUNTER Visits 0 Evaluation Information Evaluation Date 06/29/19 PT-OP-B Current Condition Start: 06/29/19 13:51 Freq: Status: Active Protocol: Document 06/29/19 10:30 DCW (Rec: 06/29/19 14:27 DCW [id number]) Current Condition History of Current Condition Onset Date 3 weeks Current Complaints weakness and imbalance following chemotherapy History of Current Condition Pt is a 78 year old male presenting with complaints of a waxing and waning imbalance and weakness associated with his current course of chemotherapy. Per his oncology notes, pt has a history of a relatively small primary squamous lung cancer but was found to have positive N2 node at the time of endobronchial ultrasound. He underwent radiation therapy but had declined concurrent chemotherapy. At the completion of his radiation, he was open to the possibility of sequential therapy and has since undergone his 2nd cycle of treatment (Ronald Miguel MD, 06/09/19). Pt reports that he felt okay following his first round of chemo, but the after the second, was weak and shaking and wouldn't stand for about a week. After his recent third round, he performed a lot of LAQ, SLR , and mini-squats, and felt like he recovered much more quickly. Pt requested a referral to PT so he could learn more exercises to help strengthen his legs, unfortunately due to a delay getting in for an appointment, his fourth (and planned final ) round of chemo is tomorrow, but pt is hopeful that following that, he will be feeling well enough that he can continue with his currently scheduled PT. Pt also admits to two falls in his kitchen within the past 1. 5 years, and three or four other falls out in public over the last five years or so. Prior Treatments and Tests Radiation and chemotherapy Treatment Goals Patient/Caregiver Goals Pt wants to limit weakness and fatigue following chemotherapy, and to improve walking and stability. Personal Factors Other Personal Factors That May Effect COPD, Hx Prostate Ca s/p Therapy/Recovery orchiectomy, radiation and chemo secondary to squamous cell lung cancer. PT-OP-C Subjective Start: 06/29/19 13:51 Freq: Status: Active Protocol: Document 09/01/19 13:45 DCW (Rec: 09/01/19 14:30 DCW [id number]) OP-PT Subjective Patient Comments Patient Comments I'm fair today. PT-OP-D Balance Start: 06/29/19 13:51 Freq: Status: Active Protocol: Document 06/29/19 10:30 DCW (Rec: 06/29/19 14:27 DCW [id number]) Balance Tests Waters Balance Test Waters Balance Test Score 42 Waters Impairment Rating 20 to 39% Impaired (Score 34- 44) Waters Balance Assessment Evaluation Sitting to Standing Ability Independent w/Hands Unsupported Stance Supervision- 2 minutes Sitting Unsupported, Feet on Floor Safely- 2 minutes Standing to Sitting Ability Assist, Control w/Hands Transfer Ability Safely, Hand Use Unsupported Stance- Eyes Closed Supervision, 10 seconds Unsupported Stance- Eyes Open Independent, <30 seconds Reaching Forward Standing Safely, 5 inches Pick- Up Object From Floor Supervision Look Behind Shoulder - Standing Shifts Weight Well Turning 360 Degrees Turns Bilateral, < 4 secs Unsupported Stance, Alternating Feet on (I)- 8 Steps in 20 secs Stair Unsupported Tandem Stance Small Step- 30 seconds Unilateral Leg Stance Lifts Leg/Unable to Hold Total Score Waters Total Score (out of 56 points) 42 Waters Impairment Rating 20 to 39% Impaired (Score 34- 44) PT-OP-E Functional Tests Start: 06/29/19 13:51 Freq: Status: Active Protocol: Document 06/29/19 10:30 DCW (Rec: 06/29/19 14:27 DCW [id number]) Functional Tests Dynamic Gait Index (DGI) Score 18/24 PT-OP-M Strength Start: 06/29/19 13:51 Freq: Status: Active Protocol: Document 06/29/19 10:30 DCW (Rec: 06/29/19 14:27 DCW [id number]) Hip Strength Hip Manual Muscle Testing Right Flexion (L2) 4- Good- Abduction 4 Good Adduction 4- Good- External Rotation 4- Good- Internal Rotation 4- Good- Left Flexion (L2) 4 Good Abduction 4- Good- Adduction 4- Good- External Rotation 4- Good- Internal Rotation 4- Good- Knee Strength Knee Manual Muscle Testing Right Flexion (S2) 4- Good- Extension (L3) 4 Good Left Flexion (S2) 4- Good- Extension (L3) 4 Good Ankle/Foot Strength Ankle and Foot Manual Muscle Testing Right Dorsiflexion (L4) 3+ Fair+ Plantarflexion (S1) 3 Fair Left Dorsiflexion (L4) 3+ Fair+ Plantarflexion (S1) 3 Fair PT-OP-Q Treatments Start: 06/29/19 13:51 Freq: Status: Active Protocol: Document 09/01/19 13:45 DCW (Rec: 09/01/19 14:30 DCW [id number]) Cardio Equipment Recumbent Elliptical ([employer]) Duration (Minutes) 4 Resistance 4 Seat Position 10 Gym Equipment Shuttle Recovery Bilateral Heel Raises Resistance 50# Unilateral Squats Resistance 50# Shuttle Recovery Platform Stable Bilateral Squats Resistance 87# Shuttle Recovery Platform Stable Shuttle Balance Blue Details Wide BRAIN, Staggered Therapeutic Exercises Other Exercises Hurdles Other Exercise Name Hurdles Resistance 4# Comments Fwd, Lateral Resisted Ambulation Other Exercise Name Resisted Side-stepping Resistance Yellow Equipment Used T-band Neuro Re-Education Treatment Balance Activities Narrow BRAIN Details Tandem Stance Surface Firm SLS Details SLS PT-OP-T Assessment and Plan Start: 06/29/19 13:51 Freq: Status: Active Protocol: Document 09/01/19 13:45 DCW (Rec: 09/01/19 14:30 DCW [id number]) Physical Therapy Assessment Impairments Impairments Activity Tolerance,Balance, Functional Mobility,Gait, Strength Other Concerns Fall Risk Yes, per Waters (42/56) and DGI () Barriers to Rehabilitation Hx of falls, Hx of Lung Ca, Hx of Prostate Ca, currently receiving Chemo Goals Three Impairment Pt experiences weakness and decreased stability following Chemo Crop Picker Goal (LTG) Pt to score >20/24 on DGI and >49/56 on Waters to demonstrate decreased falls risk LTG Duration 08/30/18 Two Impairment Pt has increased difficulty rising after sitting on toilet Skilled Nursing Goal (LTG) Pt to improve gross LE MMT to 4/5 to improve sit->stand ability LTG Duration 08/30/18 One Impairment Pt does not have an appropriate home exercise program Short Term Goal (STG) Pt to be independent and compliant with an appropriate HEP STG Duration 07/30/18 Assessment Summary Assessment Pt had some fatigue today, which led to decreased quality participating in balance activities during the second half of his treatment session. Physical Therapy Plan Frequency and Duration Frequency of Treatment 2x/Week Duration of Treatment 10 weeks Plan of Care Start Date 06/29/19 Plan of Care End Date 09/07/19 Therapeutic Interventions Therapeutic Interventions Aquatic Therapy,Balance Training,Home Exercise Program ,Manual Therapy,Neuromuscular Re-education,Patient/Caregiver Education,Self-Care/Home Management,Soft Tissue Mobilization,Therapeutic Exercises Modalities Cold Pack/Ice Massage,Hot Packs Next Visit Focus/Plan Next Note Type Treatment Note Next Visit Plan Balance training, strengthening, increased activity tolerance
--- NOTE | 2019-09-06 14:28 | PT.OTN ---
Current Diagnoses Malignant neoplasm of unspecified part of left bronchus or lung (09/06/19) Idiopathic progressive neuropathy (09/06/19) Muscle weakness (generalized) (09/06/19) Other abnormalities of gait and mobility (09/06/19) Chronic fatigue, unspecified (09/06/19) History of falling (09/06/19) Physical Therapy Treatment Note PT-OP-A Visit Information Start: 06/29/19 13:51 Freq: Status: Active Protocol: Document 09/06/19 13:45 DCW (Rec: 09/06/19 14:28 DCW [id number]) Out-Patient Physical Therapy Visit Information Visit Information Visit Type Discharge Summary Visit Start Time 13:45 Visit Stop Time 14:15 Total Visit Minutes 30 Visit Number 10 Number of JOINER APPRENTICE Visits 0 Evaluation Information Evaluation Date 06/29/19 PT-OP-B Current Condition Start: 06/29/19 13:51 Freq: Status: Active Protocol: Document 06/29/19 10:30 DCW (Rec: 06/29/19 14:27 DCW [id number]) Current Condition History of Current Condition Onset Date 3 weeks Current Complaints weakness and imbalance following chemotherapy History of Current Condition Pt is a 78 year old male presenting with complaints of a waxing and waning imbalance and weakness associated with his current course of chemotherapy. Per his oncology notes, pt has a history of a relatively small primary squamous lung cancer but was found to have positive N2 node at the time of endobronchial ultrasound. He underwent radiation therapy but had declined concurrent chemotherapy. At the completion of his radiation, he was open to the possibility of sequential therapy and has since undergone his 2nd cycle of treatment (Ronald Miguel MD, 06/09/19). Pt reports that he felt okay following his first round of chemo, but the after the second, was weak and shaking and wouldn't stand for about a week. After his recent third round, he performed a lot of LAQ, SLR , and mini-squats, and felt like he recovered much more quickly. Pt requested a referral to PT so he could learn more exercises to help strengthen his legs, unfortunately due to a delay getting in for an appointment, his fourth (and planned final ) round of chemo is tomorrow, but pt is hopeful that following that, he will be feeling well enough that he can continue with his currently scheduled PT. Pt also admits to two falls in his kitchen within the past 1. 5 years, and three or four other falls out in public over the last five years or so. Prior Treatments and Tests Radiation and chemotherapy Treatment Goals Patient/Caregiver Goals Pt wants to limit weakness and fatigue following chemotherapy, and to improve walking and stability. Personal Factors Other Personal Factors That May Effect COPD, Hx Prostate Ca s/p Therapy/Recovery orchiectomy, radiation and chemo secondary to squamous cell lung cancer. PT-OP-C Subjective Start: 06/29/19 13:51 Freq: Status: Active Protocol: Document 09/06/19 13:45 DCW (Rec: 09/06/19 14:28 DCW [id number]) OP-PT Subjective Patient Comments Patient Comments I always either have bad, average bad, or good days. Over the last six months, I've only had one good day, but today is 'average bad,' maybe even better than average. PT-OP-D Balance Start: 06/29/19 13:51 Freq: Status: Active Protocol: Document 09/06/19 13:45 DCW (Rec: 09/06/19 14:07 DCW [id number]) Balance Tests Waters Balance Test Waters Balance Test Score 48 Waters Impairment Rating 1 to 19% Impaired (Score 45-55 ) Waters Balance Assessment Evaluation Sitting to Standing Ability Independent w/out Hands Unsupported Stance Safely- 2 minutes Sitting Unsupported, Feet on Floor Safely- 2 minutes Standing to Sitting Ability Safely, Minimal Hand Use Transfer Ability Safely, Minimal Hand Use Unsupported Stance- Eyes Closed Safely, 10 seconds Unsupported Stance- Eyes Open Independent, 1 minute Reaching Forward Standing Safely, 5 inches Pick- Up Object From Floor Independent/Safe Look Behind Shoulder - Standing Turns Sideways Only Turning 360 Degrees Turns Bilateral, < 4 secs Unsupported Stance, Alternating Feet on (I)- 8 Steps in 20 secs Stair Unsupported Tandem Stance Holds Tandem- 30 seconds Unilateral Leg Stance Unable,assist to not fall Total Score Waters Total Score (out of 56 points) 48 Waters Impairment Rating 20 to 39% Impaired (Score 34- 44) PT-OP-E Functional Tests Start: 06/29/19 13:51 Freq: Status: Active Protocol: Document 09/06/19 13:45 DCW (Rec: 09/06/19 14:07 DCW [id number]) Functional Tests Dynamic Gait Index (DGI) Score DGI Impairment Rating 1 to <20% Impaired (Score 20- 23) PT-OP-M Strength Start: 06/29/19 13:51 Freq: Status: Active Protocol: Document 09/06/19 13:45 DCW (Rec: 09/06/19 14:07 DCW [id number]) Hip Strength Hip Manual Muscle Testing Right Flexion (L2) 4 Good Abduction 4 Good Adduction 4+ Good+ External Rotation 4+ Good+ Internal Rotation 4+ Good+ Left Flexion (L2) 4 Good Abduction 4 Good Adduction 4+ Good+ External Rotation 4+ Good+ Internal Rotation 4+ Good+ Knee Strength Knee Manual Muscle Testing Right Flexion (S2) 4+ Good+ Extension (L3) 4 Good Left Flexion (S2) 4+ Good+ Extension (L3) 4+ Good+ Ankle/Foot Strength Ankle and Foot Manual Muscle Testing Right Dorsiflexion (L4) 4- Good- Plantarflexion (S1) 4- Good- Left Dorsiflexion (L4) 4 Good Plantarflexion (S1) 4- Good- PT-OP-Q Treatments Start: 06/29/19 13:51 Freq: Status: Active Protocol: Document 09/06/19 13:45 DCW (Rec: 09/06/19 14:28 DCW [id number]) Neuro Re-Education Treatment Other Activities Testing Details [id number] Waters PT-OP-T Assessment and Plan Start: 06/29/19 13:51 Freq: Status: Active Protocol: Document 09/06/19 13:45 DCW (Rec: 09/06/19 14:28 DCW [id number]) Physical Therapy Assessment Impairments Impairments Activity Tolerance,Balance, Functional Mobility,Gait, Strength Other Concerns Barriers to Rehabilitation Hx of falls, Hx of Lung Ca, Hx of Prostate Ca, currently receiving Chemo Goals Three Impairment Pt experiences weakness and decreased stability following Chemo Usp Goal (LTG) Pt to score >20/24 on DGI and >49/56 on Waters to demonstrate decreased falls risk LTG Duration 08/30/18 - partially met (DGI , Waters 48/56) Two Impairment Pt has increased difficulty rising after sitting on toilet Usp Goal (LTG) Pt to improve gross LE MMT to 4/5 to improve sit->stand ability LTG Duration 08/30/18 - partially met (B PF, R DF 4-/5) One Impairment Pt does not have an appropriate home exercise program Short Term Goal (STG) Pt to be independent and compliant with an appropriate HEP STG Duration Met Assessment Summary Assessment Pt demonstrated improved DGI and Waters scores and increased leg strength. Pt simply chalks it up to being a good day, and feels that if he came in tomorrow, theres a chance it would be just as bad or worse than his initial eval. Pt is appreciative of the things he has learned, and reports he will continue his HEP, but does not feel like he will get anything more out of skilled therapy. Pt will be discharged at this time. Physical Therapy Plan Frequency and Duration Frequency of Treatment 2x/Week Duration of Treatment 10 weeks Plan of Care Start Date 06/29/19 Plan of Care End Date 09/07/19 Therapeutic Interventions Therapeutic Interventions Aquatic Therapy,Balance Training,Home Exercise Program ,Manual Therapy,Neuromuscular Re-education,Patient/Caregiver Education,Self-Care/Home Management,Soft Tissue Mobilization,Therapeutic Exercises Modalities Cold Pack/Ice Massage,Hot Packs Discharge Physical Therapy Discharge Reasons Patient Request Next Visit Focus/Plan Next Note Type Discharge Summary
== END 2019-09-09 12:55 ==
LOC: PHYS 13:45
PROVIDERS: Family Provider Student in an Organized Health Care Education/Training Program; PCP Student in an Organized Health Care Education/Training Program
DX: C34.92 Malignant neoplasm of unspecified part of left bronchus or lung (principal); R26.89 Other abnormalities of gait and mobility; M62.81 Muscle weakness (generalized); G60.3 Idiopathic progressive neuropathy; R53.82 Chronic fatigue, unspecified; Z91.81 History of falling
CPT/HCPCS: 97110; 97112; 97140; 97162

== ENCOUNTER → 2019-09-08 15:12 | Outpatient (CLI) | payer MEDICARE, MEDICAID, SELFPAY ==
[2019-09-08 18:02] LABS: Prostate Specific Antigen 14.9 ng/mL (0.10-4.00)
== END ==
PROVIDERS: Family Provider Student in an Organized Health Care Education/Training Program; PCP Student in an Organized Health Care Education/Training Program; Referring Provider Specialist; Visit Provider Specialist
DX: C61 Malignant neoplasm of prostate (principal)
CPT/HCPCS: 36415; 84153

== ENCOUNTER → 2019-11-29 11:14 | Outpatient (CLI) | payer MEDICARE, MEDICAID, SELFPAY ==
--- NOTE | 2019-11-29 11:17 | DI.CT.S_ITS ---
PROCEDURE: CT CHEST ABD PEL W CON INDICATIONS: lung cancer TECHNIQUE: After the administration of oral and intravenous contrast, 5 mm thick sections acquired from the lung apices to the symphysis. 5 mm coronal and sagittal reformats were performed, with additional 7 mm coronal MIP reformats through the lungs. For radiation dose reduction, the following was used: automated exposure control, adjustment of mA and/or kV according to patient size. COMPARISON: [facility], CT, CT CHEST WITH CONTRAST, 02/04/2019, 14:51. [facility], CT, CT CHEST ABD PEL W CON, 07/13/2019, 9:43. FINDINGS: Image quality: Excellent. CHEST: Lungs and pleura: Fibrotic scarring extending from left hilum to the apex with associated mild traction bronchiectasis. There are severe upper lobe emphysematous changes are and mild subpleural fibrosis in the posterior lower lobes. Focal subpleural rounded atelectasis and fibrosis in the anterolateral left upper lobe/lingula is stable. No acute airspace opacities. No pleural effusions or pneumothorax. Central and peripheral airways appear patent and normal in caliber. Mediastinum: Confluent low density soft tissue in the left hilar region surrounding left upper lobe pulmonary arterial branches as slightly increased compared to prior study, a measurable component measures 2.2 cm in greatest diameter. Similar right hilar soft tissue, unchanged. No new bulky adenopathy. Heart size is normal. Coronary and aortic valvular calcification. No pericardial effusion. Thoracic aorta and central pulmonary arteries are normal in size. Moderate calcified and noncalcified arch atherosclerosis. Esophagus is normal in caliber. No hiatal hernia. Chest wall: No axillary or supraclavicular adenopathy by size criteria. Thyroid gland is unremarkable. Right IJ Mediport is present. ABDOMEN: Solid organs: Liver is normal in size and enhancement. Gallbladder is normal. Biliary system is non dilated. Pancreas enhances normally. Spleen is normal in size and enhancement. No adrenal nodules. Kidneys demonstrate normal size and enhancement, without hydronephrosis. Peritoneum and bowel: Bowel loops demonstrate normal wall thickness and caliber. No free fluid or air. Normal appendix. Mildly increased quantity of retained stool throughout colon. Nodes and vessels: No retroperitoneal or mesenteric adenopathy by size criteria. Moderate mixed calcified and noncalcified abdominal aortic atherosclerosis. Small fusiform mid aortic aneurysm measuring 3.1 x 3.2 cm. Heavy calcification at the iliac bifurcation. Miscellaneous: No ventral hernias. PELVIS: Genitourinary: Anterior wall of the urinary bladder is moderately thickened without focal enhancing lesion. The prostate gland is mildly enlarged. Miscellaneous: No inguinal hernias or adenopathy. Bones: No suspicious bony lesions. No vertebral body compression fractures. Degenerative changes in the left hip joint and at the L4-5 and L5-S1 lumbar levels. IMPRESSION: 1. Slight interval increase in left hilar soft tissue compared to the prior study in the same location as the initial lesion. Close interval followup is recommended. 2. No evidence of metastatic disease in the chest, abdomen, or pelvis. 3. Small abdominal aortic aneurysm. 4. Probable urinary bladder wall thickening secondary to chronic bladder outlet obstruction. Dictated by: Aspen Gaines M.D. on 11/29/2019 at 14:19 Approved by: Aspen Gaines M.D. on 11/29/2019 at 14:57
[2019-11-29 12:10] LABS: Add Manual Diff / Slide Review NO; Basophils Absolute Auto 100 /uL (0-100); Basophils Percent Auto 1.5 % (0-2); Eosinophils Absolute Auto 300 /uL (0-450); Eosinophils Percent Auto 5.7 % (2-4); Hematocrit 37.8 % (41-53); Hemoglobin 13.3 g/dL (13.5-17.5); Lymphocytes Absolute Auto 700 /uL (1100-4500); Lymphocytes Percent Auto 12.5 % (25-40); Mean Corpuscular HGB Conc 35.2 % (30-36); Mean Corpuscular Volume 99.4 fL (80-100); Monocytes Absolute Auto 600 /uL (0-900); Monocytes Percent Auto 10.7 % (3-14); Neutrophils Absolute Auto 4100 /uL (1500-7000); Neutrophils Percent Auto 69.6 % (50-75); Platelet Count 248 X10^3/uL (150-400); Red Cell Distribution Width 13.5 % (11.6-14.8); White Blood Cell Count 5.9 X10^3/uL (4.5-11.0)
[2019-11-29 12:17] LABS: Alanine Aminotransferase 9 IU/L (<50); Albumin Globulin Ratio 1.1 (1.0-2.8); Alkaline Phosphatase 86 U/L (38-126); Aspartate Aminotransferase 25 IU/L (17-59); BUN Creatinine Ratio 16.2 (6-22); Bilirubin Total 0.4 mg/dL (0.2-1.3); Blood Urea Nitrogen 11 mg/dL (9-20); Calcium 9.6 mg/dL (8.4-10.2); Carbon Dioxide 29 mmol/L (22-32); Chloride 103 mmol/L (98-107); Estimated Glomerular Filt Rate > 60.0 mL/min (>60); Globulin 3.6 g/dL (1.7-4.1); Glucose 96 mg/dL (80-110); HEMOLYSIS < 15 (0-50); Potassium 4.2 mmol/L (3.4-5.1); Sodium 137 mmol/L (137-145); Total Protein 7.6 g/dL (6.3-8.2)
== END ==
PROVIDERS: Family Provider Student in an Organized Health Care Education/Training Program; PCP Student in an Organized Health Care Education/Training Program; Referring Provider Internal Medicine Hematology & Oncology; Visit Provider Internal Medicine Hematology & Oncology
DX: C34.92 Malignant neoplasm of unspecified part of left bronchus or lung (principal); C61 Malignant neoplasm of prostate; I70.0 Atherosclerosis of aorta; I71.4 Abdominal aortic aneurysm, without rupture; N40.0 Benign prostatic hyperplasia without lower urinary tract symptoms
CPT/HCPCS: 36415; 71260; 74177; 80053; 85025; Q9967

== ENCOUNTER → 2019-12-21 13:13 | Outpatient (CLI) | payer MEDICARE, MEDICAID, OTHER, SELFPAY ==
[2019-12-21 14:41] LABS: BUN Creatinine Ratio 19.1 (6-22); Blood Urea Nitrogen 13 mg/dL (9-20); Calcium 9.5 mg/dL (8.4-10.2); Carbon Dioxide 26 mmol/L (22-32); Chloride 100 mmol/L (98-107); Estimated Glomerular Filt Rate > 60.0 mL/min (>60); Glucose 98 mg/dL (80-110); HEMOLYSIS < 15 (0-50); Potassium 4.6 mmol/L (3.4-5.1); Sodium 134 mmol/L (137-145)
[2019-12-21 14:58] LABS: Free T4, Direct Thyroxine 1.21 ng/dL (0.78-2.19)
[2019-12-21 15:12] LABS: Thyroid Stimulating Hormone 2.19 uIU/mL (0.47-4.68)
[2019-12-21 15:31] LABS: Vitamin B12 253 pg/mL (239-931)
[2019-12-23 23:38] LABS: Methylmalonic Acid,Serum 164 nmol/L (0-378)
== END ==
PROVIDERS: Family Provider Student in an Organized Health Care Education/Training Program; PCP Student in an Organized Health Care Education/Training Program; Referring Provider Psychiatry & Neurology Neurology; Visit Provider Psychiatry & Neurology Neurology
DX: R42 Dizziness and giddiness (principal); G60.9 Hereditary and idiopathic neuropathy, unspecified
CPT/HCPCS: 36415; 80048; 82607; 83921; 84439; 84443

== ENCOUNTER → 2020-02-07 17:17 | Outpatient (CLI) | payer MEDICARE, MEDICAID, SELFPAY ==
[2020-02-07 17:28] LABS: Add Manual Diff / Slide Review NO; Basophils Absolute Auto 0 /uL (0-100); Basophils Percent Auto 0.8 % (0-2); Eosinophils Absolute Auto 300 /uL (0-450); Eosinophils Percent Auto 5.6 % (2-4); Hematocrit 38.9 % (41-53); Hemoglobin 13.6 g/dL (13.5-17.5); Lymphocytes Absolute Auto 1000 /uL (1100-4500); Lymphocytes Percent Auto 17.4 % (25-40); Mean Corpuscular HGB Conc 34.9 % (30-36); Mean Corpuscular Hemoglobin 34.8 PG (26-34); Mean Corpuscular Volume 99.9 fL (80-100); Monocytes Absolute Auto 500 /uL (0-900); Monocytes Percent Auto 9.5 % (3-14); Neutrophils Absolute Auto 3800 /uL (1500-7000); Neutrophils Percent Auto 66.7 % (50-75); Platelet Count 239 X10^3/uL (150-400); Red Blood Cell Count 3.89 X10^6/uL (4.5-5.9); Red Cell Distribution Width 14.4 % (11.6-14.8); White Blood Cell Count 5.7 X10^3/uL (4.5-11.0)
[2020-02-07 17:46] LABS: Alanine Aminotransferase 11 IU/L (<50); Albumin Globulin Ratio 1.2 (1.0-2.8); Alkaline Phosphatase 85 U/L (38-126); Aspartate Aminotransferase 31 IU/L (17-59); BUN Creatinine Ratio 15.5 (6-22); Bilirubin Total 0.6 mg/dL (0.2-1.3); Blood Urea Nitrogen 11 mg/dL (9-20); Calcium 9.6 mg/dL (8.4-10.2); Carbon Dioxide 27 mmol/L (22-32); Chloride 102 mmol/L (98-107); Estimated Glomerular Filt Rate > 60.0 mL/min (>60); Globulin 3.3 g/dL (1.7-4.1); Glucose 105 mg/dL (80-110); HEMOLYSIS < 15 (0-50); Potassium 4.2 mmol/L (3.4-5.1); Sodium 136 mmol/L (137-145); Total Protein 7.3 g/dL (6.3-8.2)
== END ==
PROVIDERS: Family Provider Student in an Organized Health Care Education/Training Program; PCP Student in an Organized Health Care Education/Training Program; Referring Provider Internal Medicine Hematology & Oncology; Visit Provider Internal Medicine Hematology & Oncology
DX: C34.92 Malignant neoplasm of unspecified part of left bronchus or lung (principal)
CPT/HCPCS: 36415; 80053; 85025

== ENCOUNTER → 2020-02-08 12:42 | Outpatient (CLI) | payer MEDICARE, MEDICAID, SELFPAY ==
--- NOTE | 2020-02-08 12:44 | DI.CT.S_ITS ---
PROCEDURE: CT CHEST ABD PEL W CON INDICATIONS: lung cancer TECHNIQUE: After the administration of oral and intravenous contrast, 5 mm thick sections acquired from the lung apices to the symphysis. 5 mm coronal and sagittal reformats were performed, with additional 7 mm coronal MIP reformats through the lungs. For radiation dose reduction, the following was used: automated exposure control, adjustment of mA and/or kV according to patient size. COMPARISON: [facility], CT, CT CHEST ABD PEL W CON, 09/02/2018, 11:19. [facility], [place], [place] PET CT FUSION SKULL 2 THIGH, 10/14/2018, 15:50. [facility], CT, CT CHEST WITH CONTRAST, 02/04/2019, 14:51. [facility], CT, CT CHEST ABD PEL W CON, 07/13/2019, 9:43. [facility], CT, CT CHEST ABD PEL W CON, 11/29/2019, 12:58. FINDINGS: Image quality: Excellent. CHEST: Lungs and pleura: The left hilar soft mass is minimally changed in size measuring 1.1 x 2.1 cm (previously 1.3 x 1.9 cm). There is chronic left apical airspace opacity, unchanged. An irregular subpleural density is noted in lingula, also unchanged. There is severe centrilobular emphysema. No acute airspace opacities. No pleural effusions or pneumothorax. Central and peripheral airways appear patent and normal in caliber. Mediastinum: Heart size is normal. Small pericardial effusion. No mediastinal or hilar adenopathy by size criteria. Thoracic aorta and central pulmonary arteries are normal in size. Esophagus is mildly thickened concentrically. Small hiatal hernia. Chest wall: No axillary or supraclavicular adenopathy by size criteria. Thyroid gland is normal. There is a Port-A-Cath in the right anterior chest with the tip in the distal SVC. ABDOMEN: Solid organs: Liver is normal in size and enhancement. Gallbladder is normal. Biliary system is non dilated. Pancreas enhances normally. Spleen is normal in size and enhancement. No adrenal nodules. Kidneys demonstrate normal size and enhancement, without hydronephrosis. Peritoneum and bowel: Bowel loops demonstrate normal wall thickness and caliber. There is a large amount of stool in colon. No free fluid or air. Nodes and vessels: No retroperitoneal or mesenteric adenopathy by size criteria. Mild infrarenal aortic aneurysm is stable measuring 3.2 cm. Severe atherosclerosis. A prominent soft plaque is noted in the descending thoracic aorta. Miscellaneous: No ventral hernias. PELVIS: Genitourinary: Bladder is distended. Bladder wall thickness is normal. Enlarged prostate. Miscellaneous: No inguinal hernias or adenopathy. Bones: No suspicious bony lesions. No vertebral body compression fractures. IMPRESSION: 1. The left hilar soft tissue mass has minimally changed in size since the last exam. Continued close imaging follow-up is suggested. 2. Stable left apical airspace opacity and lingula the subpleural opacity. 3. Severe emphysema. 4. Mild infrarenal abdominal aortic aneurysm. 5. Bladder is distended. Enlarged prostate. Recommend clinical correlation for bladder outlet obstruction. 6. Severe atherosclerosis. Dictated by: Augusto Crespo M.D. on 02/08/2020 at 17:37 Transcribed by: RILEY on 02/08/2020 at 21:52 Approved by: Augsuto Crespo M.D. on 02/09/2020 at 9:35
== END ==
PROVIDERS: Family Provider Student in an Organized Health Care Education/Training Program; PCP Student in an Organized Health Care Education/Training Program; Referring Provider Internal Medicine Hematology & Oncology; Visit Provider Internal Medicine Hematology & Oncology
DX: C34.92 Malignant neoplasm of unspecified part of left bronchus or lung (principal); N32.89 Other specified disorders of bladder; J43.2 Centrilobular emphysema; I71.4 Abdominal aortic aneurysm, without rupture; I31.3 Pericardial effusion (noninflammatory); K44.9 Diaphragmatic hernia without obstruction or gangrene; N40.0 Benign prostatic hyperplasia without lower urinary tract symptoms; Z95.828 Presence of other vascular implants and grafts
CPT/HCPCS: 71260; 74177; Q9967

== ENCOUNTER → 2020-04-26 11:58 | Oncology outpatient (ONC) | payer MEDICARE, MEDICAID, SELFPAY ==
--- NOTE | 2019-01-28 15:48 | ONC.CONS ---
History of Present Illness - Data of Consult Patient: new to practice Consult date: 01/28/19 - Consult Narrative Reason for consult: Left lung squamous cell carcinoma Narrative: Niraj Roman is a 78 year old male with newly diagnosed left lung stage III cancer. He is being followed by Dr. Miguel, Dr. Ja Royal MD and Dr. Mclean the [facility]. Patient himself did not want to let me know who the medical oncologist or his radiation oncologist are, did not want me know more information regarding previous visits with other medical interpreter. He said he noted some inconsistency about the opinions and would like to get an independent opinion from me. Patient is a intermediate smoker of at least 2 or 3 packs per day and is not interested in smoking cessation. He told me that in July of this year, for unknown reason, he underwent a CT scan of the chest which found his left lung mass. Then it took another 6 months before he had a tissue diagnosis. However he was not able to tell me type of lung cancer is. But he said he underwent PET CT. According to patient, he was told that multiple lymph nodes in the mediastinum were involved. He was deemed in-operable. Concurrent chemotherapy with radiation were discussed with the patient. However out of concern for patient's age, radiation therapy only was recommended. There after patient was seen by radiation oncologist and further discussion regarding concurrent chemo-radiotherapy was discussed with the patient. Patient has a retired physician friend who apparently cared very much about Niraj Roman. The physician friend called around and set up appointment at [facility] and other [facility] [place]. However because of transportation issues, patient has not been able to make these visits, and he is not planning to do so. He heard information about that he has lung cancer that may be not totally in-operable and that concurrent chemotherapy with radiation might be better recommend option. Therefore he came here today trying to get an opinion from me. In our electronic medical records, there are limited information from outside the hospital. I located to records from Dr. Mclean. Patient underwent flexible fiberoptic bronchoscopy and endobronchial ultrasound with biopsy of mediastinal lymph nodes on 12/30/2018. The pathology showed that biopsy from 4L lymph node showed invasive poorly differentiated squamous cell carcinoma. PD-L1 (22 C3 antibody) showed no expression. BRaf negative for V600 mutation. I could not find any other information in our electronic medical records. But I did notice that his PSA level was 133 on 08/27/2018. Patient said that he is aware of the elevated PSA level. He has history of prostate cancer bed and he has been followed by urologist. He was told that the new diagnosis of lung cancer takes higher priority. After lung cancer is taking care of, then attention will be focused on the prostate cancer. Home Medications and Allergies Home Medications Medication Instructions Recorded Confirmed Type ASPIRIN (Aspirin) 110 mg PO DAILY #0 10/08/10 01/28/19 History CHOLECALCIFEROL (VITAMIN D3) 400 iu PO DAILY #0 10/08/10 01/28/19 History (Vitamin D3) VITAMIN C - 1,000 mg PO Q DAY #1 10/08/10 01/28/19 History (VITAMIN C) betamethasone dipropionate 0.05 % 1 applictn TOP BID PRN 10/23/18 01/28/19 History topical cream cyanocobalamin (vitamin B-12) 1,000 mcg PO DAILY 10/23/18 01/28/19 History 1,000 mcg capsule hydrocortisone 0.5 % topical 1 applictn TOP BID-QID PRN 10/23/18 01/28/19 History ointment ipratropium bromide 0.03 % nasal 2 spray NASAL BID-TID PRN 10/23/18 01/28/19 History spray oxycodone-acetaminophen 5 mg-325 1 tab PO Q8H PRN tab 10/23/18 01/28/19 History mg tablet promethazine 6.25 mg-codeine 10 5 ml PO Q6H PRN 10/23/18 01/28/19 History mg/5 mL syrup thiamine HCl (vitamin B1) 100 mg 100 mg PO DAILY 10/23/18 01/28/19 History tablet triamcinolone acetonide 0.1 % 1 applictn TOP QID 10/23/18 01/28/19 History topical cream omeprazole 40 mg DAILY 01/28/19 01/28/19 History tamsulosin 0.4 mg DAILY 01/28/19 01/28/19 History Allergies Allergy/AdvReac Type Severity Reaction Status Date / Time amoxicillin AdvReac Vomiting, Verified 01/07/19 09:39 diarrhea clavulanic acid AdvReac vomiting, Verified 01/07/19 09:39 [From Augmentin] diarrhea Medical History - Medical, Surgical, Family History Surgical History: Surgical History (Updated 01/28/19 @ 17:38 by Willow Pérez MD) Status post insertion of iliac artery stent - Social History Smoking Status: Current every day smoker Review of Systems All systems PM: reviewed and no additional remarkable complaints except as stated Exam Vital signs: Last Vital Signs Temp 97.2 F L 01/28/19 15:51 Pulse 65 01/28/19 15:51 Resp 20 01/28/19 15:51 BP 145/63 H 01/28/19 15:51 Pulse Ox 96 01/28/19 15:51 ECOG 1 - Constitutional positive no acute distress, positive thin, positive cooperative - Routine HEENT Exam Head: Present: normocephalic, atraumatic Eye: Present: EOMI, PERRL, normal accommodation. Absent: conjunctival icterus ENT: Present: mucous membranes moist - Routine Neck Exam Present: supple, full ROM. Absent: JVD, lymphadenopathy - Routine Chest/Breast/Axilla Exam Axillae: Absent: lymphadenopathy - Routine Respiratory Exam Present: decreased breath sounds, rhonchi, crackles. Absent: accessory muscle use, respiratory distress, stridor, wheezes - Routine Cardiovascular Exam Present: RRR, S1, S2. Absent: murmur, gallop - Routine Abdominal Exam Present: soft. Absent: tenderness, organomegaly - Routine Extremities Exam Absent: edema - Routine Neurological Exam Present: alert, oriented X3, CN II-XII intact. 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 He presents here today trying to get an independent opinion from me regarding the treatment strategies. First of all, I talked with him that with limited information, patient has a stage III lung cancer. Not all the stage III lung cancer is in-operable. I usually rely on thoracic surgeon to decide if the lesion is operable or not. I talked with him that there are lots of factors that are being evaluated in determining if the lung cancer is operable or not. For example, the proximity with the large blood vessels, and the extent of the lymph nodes involvement, and the anatomy of the primary lung cancer etc. Patient admitted that he knows that his lung cancer is very close to big vessels. I told him I cannot make any comment on the decision, but majority of the stage III lung cancer patients are indeed in-operable. Next I talked with him that for stage III inoperable lung cancer, the standard recommendation is concurrent chemo radiotherapy followed by adjuvant immunotherapy. The goal is to treat with intention of cure. However in making recommendations, patient's performance status, concurrent medical conditions or comorbidities, and patient's own opinion are taken into account. Concurrent chemoradiotherapy is more toxic than radiation therapy alone. Patient said that he does not want to live for ever and he does not want to go through the intensive chemotherapy. Patient will return to [facility] to follow up with Dr. Royal and Dr. Miguel.
[2019-01-28 15:51] VITALS: BP 145/63; PULSE 65; RESP 20; TEMP 36.2; O2SAT 96
[2019-04-20 09:44] VITALS: BP 146/82; PULSE 76; RESP 18; TEMP 36.3; O2SAT 93
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
--- NOTE | 2019-04-26 15:15 | PC.NURSE ---
Addendum entered by Mickey London R.N. 04/28/19 09:17: Pt reported drinking 3 beers a day or more, pt was educated that it is not recommended to drink alcohol during treatment. Pt verbalized understanding and also said he didnt see that changing now. Original Note: CHEMO TEACHING- [facility]ir[facility] Roman Chemotherapy Education: Pt provided written information on all topics discussed. Written materials printed from www.[facility] and www.[employer].org. Pt was given an overview of cancer and mechanism of action of cancer cells, that cancer is caused by cells that are dividing rapidly, and out of control. Traditional chemotherapy works by targeting the fast dividing cells and killing them. Chemotherapy affecting healthy cells dividing quickly causes many of the side effects (hair follicles, bone marrow, mucus membranes). Overview of blood cell functions of white cells to fight infection, red cells to carry oxygen, and platelets to stop bleeding was discussed, and that when bone marrow is affected by chemo, there is a decrease in production of these cells. Home care of the patient following chemotherapy was discussed. Body fluids will be contaminated for 48 hours following treatment, and any body fluids handled by caregivers should be handled wearing gloves, surfaces need to be cleaned with soap and water, any soiled linens or clothing need to be washed separately in hot water, toilet lid should be closed when flushing, person cleaning the toilet should wear gloves. How chemotherapy is administered by the RN?s in the clinic, that orders are double checked by pharmacy and checked again by two RN?s prior to administration. Nurses wear protective gear to prevent exposure to them of the chemotherapy agents which can also cause cancer. Cancer center information discussed and written hand out provided listing on-call oncologist available weekends and after hours triage R.N. hours and infusion room guide. New patient folder given to pt, which includes clinic names, phone numbers, clinic information, calendar, cancer glossary, and list of resources. Handout on advanced directives Common side effects of chemotherapy were discussed with self care tips for prevention of complications. Information also provided in writing. These included: Low blood counts (anemia, thrombocytopenia, neutropenia) Hair loss (alopecia) Nausea and vomiting Decreased appetite Loss of fertility Diarrhea Mouth sores Constipation Peripheral neuropathy Chemo brain/cognitive changes Fatigue Instructions on when to call your healthcare team or on-call physician immediately: Fever of 100.4 or higher, chills, any signs of infection Shortness of breath, wheezing, difficulty breathing, closing of throat, swelling of face, hives (signs of possible allergic reaction) Chest pain, fast heart beat or feelings of a different heart rhythm Swelling of an extremity with or without pain signs of stroke Instructions on when to call your healthcare team within the next 24 hours Nausea that interferes with ability to eat and unrelieved with prescribed medication Diarrhea (4-6 episodes in 24 hour period). Unusual bleeding or bruising Black or tarry stools, or blood in your stools Blood in the urine pain or burning with urination Extreme fatigue (unable to perform self-care activities) Mouth sores or sore areas in your mouth Bad headache Dizziness or lightheadedness Large weight gain over a short period of time General self-care tips while undergoing treatment discussed were as follows. Written materials were provided covering in detail and additional self care tips. Drink at least 2-3 quarts (8-10 glasses) of no-caffeinated beverages daily unless you are instructed otherwise and empty your bladder frequently Report any concerning symptoms to your healthcare team Avoid crowds and sick people, wash your hands frequently Use a soft bristled toothbrush, rinse three times a day with 1 tsp baking soda or 1 tsp salt mixed with warm water Avoid any mouthwashes or oral and skin products containing alcohol or fragrances Use electric razors to avoid cutting yourself Avoid contact sports or activities that could cause head injury or bleeding Avoid sun exposure, wear SPF 15 or higher, wear protective clothing Get plenty of rest, meter your activities Maintain good nutrition Avoid alcoholic beverages Attend your scheduled appointments and lab draws Treatment regimen reviewed and medications were discussed with attention to specific side effects and self care for the pt?s treatment regimen. Pt encouraged to keep a list of questions that may arise after this teaching session and bring back to next clinic visit to address. All pt's questions answered at this time. Pt verbalizes understanding of treatment plan.
[2019-04-28 08:55] VITALS: BP 121/58; PULSE 64; RESP 20; TEMP 36.8; O2SAT 97
[2019-04-28 08:59] LABS: Alanine Aminotransferase 9 IU/L (21-72); Albumin Globulin Ratio 1.2 (1.0-2.8); Alkaline Phosphatase 74 U/L (38-126); Aspartate Aminotransferase 28 IU/L (17-59); BUN Creatinine Ratio 8.6 (6-22); Bilirubin Total 0.6 mg/dL (0.2-1.3); Blood Urea Nitrogen 6 mg/dL (9-20); Carbon Dioxide 26 mmol/L (22-32); Chloride 100 mmol/L (98-107); Estimated Glomerular Filt Rate > 60.0 mL/min (>60); Globulin 3.4 g/dL (1.7-4.1); Glucose 89 mg/dL (80-110); HEMOLYSIS 17 (0-50); Potassium 4.6 mmol/L (3.4-5.1); Sodium 132 mmol/L (137-145); Total Protein 7.4 g/dL (6.3-8.2)
[2019-04-28 09:05] LABS: Add Manual Diff / Slide Review NO; Basophils Absolute Auto 100 /uL (0-100); Basophils Percent Auto 1.4 % (0-2); Eosinophils Absolute Auto 200 /uL (0-450); Eosinophils Percent Auto 4.7 % (2-4); Hematocrit 41.9 % (41-53); Hemoglobin 14.6 g/dL (13.5-17.5); Lymphocytes Absolute Auto 800 /uL (1100-4500); Lymphocytes Percent Auto 17.1 % (25-40); Mean Corpuscular HGB Conc 34.8 % (30-36); Mean Corpuscular Hemoglobin 34.4 PG (26-34); Mean Corpuscular Volume 98.9 fL (80-100); Monocytes Absolute Auto 500 /uL (0-900); Monocytes Percent Auto 10.9 % (3-14); Neutrophils Absolute Auto 3100 /uL (1500-7000); Neutrophils Percent Auto 65.9 % (50-75); Platelet Count 250 X10^3/uL (150-400); Red Blood Cell Count 4.24 X10^6/uL (4.5-5.9); Red Cell Distribution Width 14.6 % (11.6-14.8); White Blood Cell Count 4.7 X10^3/uL (4.5-11.0)
[2019-04-28] MEDS: diphenhydrAMINE 25 MG TABLET PO (09:33)
[2019-04-28] MEDS: ACETAMINOPHEN 325 MG TABLET 650 MG PO (09:33)
[2019-04-28] MEDS: dexAMETHasone 20 MG in SODIUM CHLORIDE 0.9% 50 ML 220 ML IV (09:36)
[2019-04-28] MEDS: ONDANSETRON 16 MG in SODIUM CHLORIDE 0.9% 50 ML 232 ML IV (10:02)
[2019-04-28] MEDS: FAMOTIDINE 20 MG/50 ML PIGGYBACK 200 MG IV (10:26)
[2019-04-28] MEDS: FOSAPREPITANT 150 MG in SODIUM CHLORIDE 0.9% 150 ML 300 ML IV (10:57)
[2019-04-28] MEDS: SODIUM CHLORIDE 0.9% 100 ML 21 ML IV (11:45)
[2019-04-28] MEDS: SODIUM CHLORIDE 0.9% IV (15:41)
[2019-04-28] MEDS: CARBOPLATIN IV (15:41)
[2019-05-05 11:10] LABS: Add Manual Diff / Slide Review NO; Basophils Absolute Auto 0 /uL (0-100); Basophils Percent Auto 1.2 % (0-2); Eosinophils Absolute Auto 100 /uL (0-450); Eosinophils Percent Auto 6.7 % (2-4); Hematocrit 39.4 % (41-53); Hemoglobin 13.8 g/dL (13.5-17.5); Lymphocytes Absolute Auto 600 /uL (1100-4500); Lymphocytes Percent Auto 25.3 % (25-40); Mean Corpuscular HGB Conc 35.2 % (30-36); Mean Corpuscular Volume 99.5 fL (80-100); Monocytes Absolute Auto 100 /uL (0-900); Neutrophils Absolute Auto 1400 /uL (1500-7000); Neutrophils Percent Auto 62.8 % (50-75); Platelet Count 126 X10^3/uL (150-400); Red Blood Cell Count 3.96 X10^6/uL (4.5-5.9); Red Cell Distribution Width 14.3 % (11.6-14.8); White Blood Cell Count 2.2 X10^3/uL (4.5-11.0)
[2019-05-05 11:29] LABS: Alanine Aminotransferase 18 IU/L (21-72); Albumin 3.9 g/dL (3.5-5.0); Albumin Globulin Ratio 1.3 (1.0-2.8); Alkaline Phosphatase 67 U/L (38-126); Aspartate Aminotransferase 29 IU/L (17-59); BUN Creatinine Ratio 16.7 (6-22); Bilirubin Total 0.8 mg/dL (0.2-1.3); Blood Urea Nitrogen 10 mg/dL (9-20); Calcium 9.1 mg/dL (8.4-10.2); Carbon Dioxide 27 mmol/L (22-32); Chloride 98 mmol/L (98-107); Estimated Glomerular Filt Rate > 60.0 mL/min (>60); Globulin 3.1 g/dL (1.7-4.1); Glucose 98 mg/dL (80-110); HEMOLYSIS < 15 (0-50); Potassium 4.2 mmol/L (3.4-5.1); Sodium 133 mmol/L (137-145)
--- NOTE | 2019-05-17 15:33 | ONC.SCHED ---
When confirming patient's appointment, crew scheduler was told to f-off by the patient.
[2019-05-19 08:21] VITALS: BP 142/66; PULSE 67; RESP 18; TEMP 36.8; O2SAT 94
--- NOTE | 2019-05-19 08:34 | ONC.PN ---
PN -Subjective Interval history: Diagnosis: Squamous cell lung cancer, T1 N2, negative for PD L1 Previous treatment: 1. Radiation therapy finishing in March 2019. 2. One cycle of carboplatin and Taxol Interval history: The patient is a 78-year-old man who returns today for follow-up. He had a history of a relatively small primary squamous lung cancer but was found to have positive N2 node at the time of endobronchial ultrasound. He underwent radiation therapy but had declined concurrent chemotherapy. At the completion of his radiation, he was open to the possibility of sequential therapy and has since undergone his 1st cycle of treatment. He tolerated it well. He denies any nausea or vomiting. His strength and energy level have been low but stable. No fevers or chills. No shortness of breath cough for chest pain. He has not noticed any worsening neuropathy. Bowels have been moving well. He denies any other changes in his health. His past medical history is notable for COPD. He had a history of a liver problem tender 12 years ago that left him with some nerve damage. He has a history of prostate cancer just recently had an orchiectomy. He also has a distant history of a Becerril's palsy. - Patient Self-Reported Symptoms SR Constitution: Fatigue/Malaise SR eye issues: Vision changes SR ears, nose, mouth, throat issues: Congestion, Cough SR respiratory issues: Cough, Difficulty breathing SR Skin issues: Hair loss or scalp prob SR Gastrointestinal issues: Change in bowel pattern SR Genitourinary issues: Frequent urination, Change in stream SR Musculoskeletal issues: Difficulty walking SR Neuro issues: Difficulty balancing SR Endocrine issues: Cold intolerance Home Medications and Allergies Home Medications Medication Instructions Recorded Confirmed Type ascorbic acid (vitamin C) [Vitamin 1,000 mg PO DAILY #1 10/08/10 05/19/19 History C] aspirin 325 mg PO DAILY #0 10/08/10 05/19/19 History cholecalciferol (vitamin D3) 1,000 unit PO DAILY #0 10/08/10 05/19/19 History [Vitamin D3] betamethasone dipropionate 0.05 % 1 applictn TOP BID PRN 10/23/18 05/19/19 History topical cream cyanocobalamin (vitamin B-12) 1,000 mcg PO DAILY 10/23/18 05/19/19 History 1,000 mcg capsule hydrocortisone 0.5 % topical 1 applictn TOP BID-QID PRN 10/23/18 05/19/19 History ointment ipratropium bromide 0.03 % nasal 2 spray NASAL BID-TID PRN 10/23/18 05/19/19 History spray oxycodone-acetaminophen 5 mg-325 1 tab PO Q8H PRN tab 10/23/18 05/19/19 History mg tablet promethazine 6.25 mg-codeine 10 5 ml PO Q4H PRN 10/23/18 05/19/19 History mg/5 mL syrup thiamine HCl (vitamin B1) 100 mg 100 mg PO DAILY 10/23/18 05/19/19 History tablet triamcinolone acetonide 0.1 % 1 applictn TOP QID 10/23/18 05/19/19 History topical cream omeprazole 40 mg PO DAILY 01/28/19 05/19/19 History tamsulosin 0.4 mg PO DAILY 01/28/19 05/19/19 History acetaminophen [Tylenol] 650 mg PO QID PRN #60 cap 04/14/19 05/19/19 Rx Allergies Allergy/AdvReac Type Severity Reaction Status Date / Time amoxicillin AdvReac Vomiting, Verified 04/14/19 15:45 diarrhea clavulanic acid AdvReac vomiting, Verified 04/14/19 15:45 [From Augmentin] diarrhea Exam Vital signs: Vital Signs Temp Pulse Resp BP Pulse Ox 05/19/19 08:21 98.3 F 67 18 142/66 H 94 Intake and Output 05/18/19 05/19/19 05/19/19 23:59 07:59 15:59 Other: Weight 64.3 kg Patient Weight 05/19/19 23:59 Weight 64.3 kg - Constitutional positive no acute distress, positive thin - Routine HEENT Exam Head: Present: normocephalic, atraumatic Eye: Present: EOMI, PERRL. Absent: conjunctival icterus ENT: Present: mucous membranes moist, oropharynx clear - Routine Neck Exam Present: supple. Absent: lymphadenopathy, thyromegaly - Routine Respiratory Exam Present: Clear to auscultation bilaterally. Absent: rales, wheezes - Routine Cardiovascular Exam Present: RRR, S1, S2. Absent: murmur - Routine Abdominal Exam Present: soft, normoactive bowel sounds. Absent: tenderness, organomegaly, mass - Routine Extremities Exam Absent: cyanosis, clubbing, edema - Routine Back/Spine Exam Back/Spine: Absent: vertebral tenderness - Routine Skin Exam Present: intact. Absent: petechiae, rash - Routine Neurological Exam Present: alert, oriented X3 - Routine Psychiatric Exam Present: normal affect, normal thought process Results - Labs Laboratory Last Values WBC 2.2 X10^3/uL (4.5-11.0) L 05/05/19 11:00 RBC 3.96 X10^6/uL (4.5-5.9) L 05/05/19 11:00 Hgb 13.8 g/dL (13.5-17.5) 05/05/19 11:00 Hct 39.4 % (41-53) L 05/05/19 11:00 MCV 99.5 fL (80-100) 05/05/19 11:00 MCH 35.0 PG (26-34) H 05/05/19 11:00 MCHC 35.2 % (30-36) 05/05/19 11:00 RDW 14.3 % (11.6-14.8) 05/05/19 11:00 Plt Count 126 X10^3/uL (150-400) L 05/05/19 11:00 Neut % (Auto) 62.8 % (50-75) 05/05/19 11:00 Lymph % (Auto) 25.3 % (25-40) 05/05/19 11:00 [place] % (Auto) 4.0 % (3-14) 05/05/19 11:00 Eos % (Auto) 6.7 % (2-4) H 05/05/19 11:00 Baso % (Auto) 1.2 % (0-2) 05/05/19 11:00 Neut # (Auto) 1400 /uL (3763-7442) L 05/05/19 11:00 Lymph # (Auto) 600 /uL (5444-1007) L 05/05/19 11:00 [place] # (Auto) 100 /uL (0-900) 05/05/19 11:00 Eos # (Auto) 100 /uL (0-450) 05/05/19 11:00 Baso # (Auto) 0 /uL (0-100) 05/05/19 11:00 Sodium 133 mmol/L (137-145) L 05/05/19 11:00 Potassium 4.2 mmol/L (3.4-5.1) 05/05/19 11:00 Chloride 98 mmol/L (98-107) 05/05/19 11:00 Carbon Dioxide 27 mmol/L (22-32) 05/05/19 11:00 BUN 10 mg/dL (9-20) 05/05/19 11:00 Creatinine 0.60 mg/dL (0.66-1.25) L 05/05/19 11:00 Estimated GFR > 60.0 mL/min (>60) 05/05/19 11:00 BUN/Creatinine Ratio 16.7 (6-22) 05/05/19 11:00 Glucose 98 mg/dL (80-110) 05/05/19 11:00 Calcium 9.1 mg/dL (8.4-10.2) 05/05/19 11:00 Total Bilirubin 0.8 mg/dL (0.2-1.3) 05/05/19 11:00 AST 29 IU/L (17-59) 05/05/19 11:00 ALT 18 IU/L (21-72) L 05/05/19 11:00 Alkaline Phosphatase 67 U/L (38-126) 05/05/19 11:00 Total Protein 7.0 g/dL (6.3-8.2) 05/05/19 11:00 Albumin 3.9 g/dL (3.5-5.0) 05/05/19 11:00 Globulin 3.1 g/dL (1.7-4.1) 05/05/19 11:00 Albumin/Globulin Ratio 1.3 (1.0-2.8) 05/05/19 11:00 Assessment and Plan (1) Squamous cell carcinoma of left lung [age] year old man with squamous cell lung cancer. He has completed his 1st cycle of adjuvant chemotherapy and is ready for his 2nd cycle today. He will return to clinic here in 3 weeks for follow-up but sooner should the need arise. He does have a history of prostate cancer with PSA of greater than 100. On recheck, it has come down to 39 following his orchiectomy.
[2019-05-19 08:57] LABS: Add Manual Diff / Slide Review NO; Basophils Absolute Auto 100 /uL (0-100); Eosinophils Absolute Auto 200 /uL (0-450); Eosinophils Percent Auto 4.5 % (2-4); Hematocrit 36.5 % (41-53); Hemoglobin 12.8 g/dL (13.5-17.5); Lymphocytes Absolute Auto 600 /uL (1100-4500); Lymphocytes Percent Auto 16.8 % (25-40); Mean Corpuscular HGB Conc 34.9 % (30-36); Mean Corpuscular Hemoglobin 34.9 PG (26-34); Monocytes Absolute Auto 500 /uL (0-900); Monocytes Percent Auto 12.9 % (3-14); Neutrophils Absolute Auto 2300 /uL (1500-7000); Neutrophils Percent Auto 63.8 % (50-75); Platelet Count 231 X10^3/uL (150-400); Red Blood Cell Count 3.65 X10^6/uL (4.5-5.9); Red Cell Distribution Width 14.1 % (11.6-14.8); White Blood Cell Count 3.7 X10^3/uL (4.5-11.0)
[2019-05-19 09:09] LABS: Alanine Aminotransferase 12 IU/L (<50); Albumin 3.8 g/dL (3.5-5.0); Albumin Globulin Ratio 1.3 (1.0-2.8); Alkaline Phosphatase 75 U/L (38-126); Aspartate Aminotransferase 28 IU/L (17-59); BUN Creatinine Ratio 12.9 (6-22); Bilirubin Total 0.4 mg/dL (0.2-1.3); Blood Urea Nitrogen 9 mg/dL (9-20); Calcium 9.1 mg/dL (8.4-10.2); Carbon Dioxide 27 mmol/L (22-32); Chloride 101 mmol/L (98-107); Estimated Glomerular Filt Rate > 60.0 mL/min (>60); Glucose 98 mg/dL (80-110); HEMOLYSIS < 15 (0-50); Potassium 4.1 mmol/L (3.4-5.1); Sodium 136 mmol/L (137-145); Total Protein 6.8 g/dL (6.3-8.2)
[2019-05-19] MEDS: SODIUM CHLORIDE 0.9% 100 ML 21 ML IV (09:33)
[2019-05-19] MEDS: diphenhydrAMINE 25 MG TABLET PO (09:34)
[2019-05-19] MEDS: ACETAMINOPHEN 325 MG TABLET 650 MG PO (09:34)
[2019-05-19] MEDS: FAMOTIDINE 20 MG/50 ML PIGGYBACK 200 MG IV (09:34)
[2019-05-19] MEDS: dexAMETHasone 20 MG in SODIUM CHLORIDE 0.9% 50 ML 220 ML IV (10:04)
[2019-05-19] MEDS: ONDANSETRON 16 MG in SODIUM CHLORIDE 0.9% 50 ML 232 ML IV (10:22)
[2019-05-19] MEDS: FOSAPREPITANT 150 MG in SODIUM CHLORIDE 0.9% 150 ML 300 ML IV (10:48)
[2019-05-19 11:05] LABS: Prostate Specific Antigen 31.7 ng/mL (0.10-4.00)
[2019-05-19] MEDS: PACLITAXEL IV (11:15)
[2019-05-19] MEDS: DEXTROSE 5% IV (11:15)
[2019-05-19 13:18] VITALS: BP 133/62; PULSE 65; RESP 18; TEMP 36.7; O2SAT 93
[2019-05-19] MEDS: CARBOPLATIN IV (15:13)
[2019-05-19] MEDS: SODIUM CHLORIDE 0.9% IV (15:13)
[2019-05-26 11:22] LABS: Hematocrit 37.1 % (41-53); Hemoglobin 13.1 g/dL (13.5-17.5); Mean Corpuscular HGB Conc 35.4 % (30-36); Mean Corpuscular Hemoglobin 35.2 PG (26-34); Mean Corpuscular Volume 99.4 fL (80-100); Platelet Count 138 X10^3/uL (150-400); Red Blood Cell Count 3.73 X10^6/uL (4.5-5.9)
[2019-05-26 11:28] LABS: Alanine Aminotransferase 15 IU/L (<50); Albumin Globulin Ratio 1.3 (1.0-2.8); Alkaline Phosphatase 72 U/L (38-126); Aspartate Aminotransferase 29 IU/L (17-59); BUN Creatinine Ratio 23.3 (6-22); Bilirubin Total 0.6 mg/dL (0.2-1.3); Blood Urea Nitrogen 14 mg/dL (9-20); Calcium 9.4 mg/dL (8.4-10.2); Carbon Dioxide 27 mmol/L (22-32); Chloride 98 mmol/L (98-107); Estimated Glomerular Filt Rate > 60.0 mL/min (>60); Glucose 94 mg/dL (80-110); HEMOLYSIS < 15 (0-50); Potassium 4.2 mmol/L (3.4-5.1); Sodium 131 mmol/L (137-145); White Blood Cell Count 1.8 X10^3/uL (4.5-11.0)
[2019-05-26 11:29] LABS: Add Manual Diff / Slide Review YES
[2019-05-26 11:53] LABS: Neutrophils Absolute Manual 1008 /uL (3000-5900); Total Cells Counted 50
[2019-05-26 11:55] LABS: RBC Morphology Normal Morphology
--- NOTE | 2019-05-26 12:45 | PC.NURSE ---
Dr. Miguel aware of WBC 1.8, no new orders received. Called pt to discuss low counts and proper precautions. Further discussed s/s of infection; fever, chills sore throat etc. Pt verbalizes understanding , states I'm buying a thermometer right now.
--- NOTE | 2019-06-09 09:23 | P.PNONC_ITS ---
PN -Subjective Interval history: Diagnosis: Squamous cell lung cancer, T1 N2, negative for PD L1 Previous treatment: 1. Radiation therapy finishing in March 2019. 2. 2 cycles of carboplatin and Taxol Interval history: The patient is a 78-year-old man who returns today for follow-up. He had a history of a relatively small primary squamous lung cancer but was found to have positive N2 node at the time of endobronchial ultrasound. He underwent radiation therapy but had declined concurrent chemotherapy. At the completion of his radiation, he was open to the possibility of sequential therapy and has since undergone his 2nd cycle of treatment. He did have some diarrhea that just lasted for part of a day. He did have some tarry stool as well. He notes that he had shaky sensation in his legs that lasted for about 8 or 10 days. On 1 occasion he felt like he was going to fall and lowered himself to the ground. It has since resolved. He has not noticed any worsening numbness or tingling in his feet or legs. He denies any new aches or pains. He has not had any fever. He has had some decrease in his appetite. He has noticed a change in his taste as well. He did have what sounds like a swollen lymph node in the neck but it seems to have resolved. He denies any other changes in his health. His past medical history is notable for COPD. He had a history of a liver problem tender 12 years ago that left him with some nerve damage. He has a history of prostate cancer just recently had an orchiectomy. He also has a distant history of a Becerril's palsy. - Patient Self-Reported Symptoms SR Constitution: Fatigue/Malaise SR eye issues: Vision changes SR ears, nose, mouth, throat issues: Congestion, Cough SR respiratory issues: Cough, Difficulty breathing SR Skin issues: Hair loss or scalp prob SR Gastrointestinal issues: Change in bowel pattern SR Genitourinary issues: Frequent urination, Change in stream SR Musculoskeletal issues: Difficulty walking SR Neuro issues: Difficulty balancing SR Endocrine issues: Cold intolerance Home Medications and Allergies Home Medications Medication Instructions Recorded Confirmed Type ascorbic acid (vitamin C) [Vitamin 1,000 mg PO DAILY #1 10/08/10 05/19/19 History C] aspirin 325 mg PO DAILY #0 10/08/10 05/19/19 History cholecalciferol (vitamin D3) 1,000 unit PO DAILY #0 10/08/10 05/19/19 History [Vitamin D3] betamethasone dipropionate 0.05 % 1 applictn TOP BID PRN 10/23/18 05/19/19 History topical cream cyanocobalamin (vitamin B-12) 1,000 mcg PO DAILY 10/23/18 05/19/19 History 1,000 mcg capsule hydrocortisone 0.5 % topical 1 applictn TOP BID-QID PRN 10/23/18 05/19/19 History ointment ipratropium bromide 0.03 % nasal 2 spray NASAL BID-TID PRN 10/23/18 05/19/19 History spray oxycodone-acetaminophen 5 mg-325 1 tab PO Q8H PRN tab 10/23/18 05/19/19 History mg tablet promethazine 6.25 mg-codeine 10 5 ml PO Q4H PRN 10/23/18 05/19/19 History mg/5 mL syrup thiamine HCl (vitamin B1) 100 mg 100 mg PO DAILY 10/23/18 05/19/19 History tablet triamcinolone acetonide 0.1 % 1 applictn TOP QID 10/23/18 05/19/19 History topical cream omeprazole 40 mg PO DAILY 01/28/19 05/19/19 History tamsulosin 0.4 mg PO DAILY 01/28/19 05/19/19 History acetaminophen [Tylenol] 650 mg PO QID PRN #60 cap 04/14/19 05/19/19 Rx Allergies Allergy/AdvReac Type Severity Reaction Status Date / Time amoxicillin AdvReac Vomiting, Verified 04/14/19 15:45 diarrhea clavulanic acid AdvReac vomiting, Verified 04/14/19 15:45 [From Augmentin] diarrhea Exam Vital signs: Intake and Output 06/08/19 06/09/19 06/09/19 23:59 07:59 15:59 Other: Weight 64.3 kg Patient Weight 06/09/19 23:59 Weight 64.3 kg - Constitutional positive no acute distress, positive average body habitus - Routine HEENT Exam Head: Present: normocephalic, atraumatic Eye: Present: EOMI, PERRL. Absent: conjunctival icterus, scleral injection ENT: Present: mucous membranes moist, oropharynx clear - Routine Neck Exam Present: supple. Absent: lymphadenopathy, thyromegaly - Routine Respiratory Exam Present: Clear to auscultation bilaterally. Absent: rales, wheezes - Routine Cardiovascular Exam Present: RRR, S1, S2. Absent: murmur - Routine Abdominal Exam Present: soft, normoactive bowel sounds. Absent: tenderness, organomegaly, mass - Routine Extremities Exam Absent: cyanosis, clubbing, edema - Routine Back/Spine Exam Back/Spine: Absent: vertebral tenderness - Routine Skin Exam Present: intact. Absent: petechiae, rash - Routine Neurological Exam Present: alert, oriented X3 - Routine Psychiatric Exam Present: normal affect, normal thought process Results - Labs Laboratory Last Values WBC 1.8 X10^3/uL (4.5-11.0) L* 05/26/19 11:10 RBC 3.73 X10^6/uL (4.5-5.9) L 05/26/19 11:10 Hgb 13.1 g/dL (13.5-17.5) L 05/26/19 11:10 Hct 37.1 % (41-53) L 05/26/19 11:10 MCV 99.4 fL (80-100) 05/26/19 11:10 MCH 35.2 PG (26-34) H 05/26/19 11:10 MCHC 35.4 % (30-36) 05/26/19 11:10 RDW 14.0 % (11.6-14.8) 05/26/19 11:10 Plt Count 138 X10^3/uL (150-400) L 05/26/19 11:10 Neut % (Auto) Not Reportable 05/26/19 11:10 Lymph % (Auto) Not Reportable 05/26/19 11:10 [place] % (Auto) Not Reportable 05/26/19 11:10 Eos % (Auto) Not Reportable 05/26/19 11:10 Baso % (Auto) Not Reportable 05/26/19 11:10 Neut # (Auto) 2300 /uL (3666-0942) 05/19/19 08:45 Lymph # (Auto) Not Reportable 05/26/19 11:10 [place] # (Auto) Not Reportable 05/26/19 11:10 Eos # (Auto) 200 /uL (0-450) 05/19/19 08:45 Baso # (Auto) Not Reportable 05/26/19 11:10 Total Counted 50 05/26/19 11:10 Seg Neutrophils % 56.0 % (38-70) 05/26/19 11:10 Lymphocytes % (Manual) 28.0 % (25-45) 05/26/19 11:10 Monocytes % (Manual) 4.0 % (2-11) 05/26/19 11:10 Eosinophils % (Manual) 10.0 % (2-4) H 05/26/19 11:10 Basophils % (Manual) 2.0 % (0-1) H 05/26/19 11:10 Neutrophils # (Manual) 1008 /uL (2381-9097) L 05/26/19 11:10 RBC Morphology Normal morphology 05/26/19 11:10 Sodium 131 mmol/L (137-145) L 05/26/19 11:10 Potassium 4.2 mmol/L (3.4-5.1) 05/26/19 11:10 Chloride 98 mmol/L (98-107) 05/26/19 11:10 Carbon Dioxide 27 mmol/L (22-32) 05/26/19 11:10 BUN 14 mg/dL (9-20) 05/26/19 11:10 Creatinine 0.60 mg/dL (0.66-1.25) L 05/26/19 11:10 Estimated GFR > 60.0 mL/min (>60) 05/26/19 11:10 BUN/Creatinine Ratio 23.3 (6-22) H 05/26/19 11:10 Glucose 94 mg/dL (80-110) 05/26/19 11:10 Calcium 9.4 mg/dL (8.4-10.2) 05/26/19 11:10 Total Bilirubin 0.6 mg/dL (0.2-1.3) 05/26/19 11:10 AST 29 IU/L (17-59) 05/26/19 11:10 ALT 15 IU/L (<50) 05/26/19 11:10 Alkaline Phosphatase 72 U/L (38-126) 05/26/19 11:10 Total Protein 7.0 g/dL (6.3-8.2) 05/26/19 11:10 Albumin 4.0 g/dL (3.5-5.0) 05/26/19 11:10 Globulin 3.0 g/dL (1.7-4.1) 05/26/19 11:10 Albumin/Globulin Ratio 1.3 (1.0-2.8) 05/26/19 11:10 Prostate Specific Ag 31.7 ng/mL (0.10-4.00) H 05/19/19 08:45 Testosterone Level 30.0 ng/dL (71.8-623) L 05/19/19 08:45 Assessment and Plan (1) Squamous cell carcinoma of left lung [age] year old man with squamous cell lung cancer. He has completed his 2nd cycle of adjuvant chemotherapy and is ready for his 3rd cycle today. He is tolerating his therapy with the expected toxicities. He will return to clinic in about 3 weeks for his 4th and final cycle of treatment. He will be due for a CT scan somewhere around the end of the year. He does have a history of prostate cancer with PSA of greater than 100. On recheck, it has come down to 39 following his orchiectomy.
[2019-06-09 09:31] VITALS: BP 159/67; PULSE 87; RESP 18; TEMP 36.4; O2SAT 98
[2019-06-09 10:10] LABS: Add Manual Diff / Slide Review NO; Basophils Absolute Auto 0 /uL (0-100); Basophils Percent Auto 0.3 % (0-2); Eosinophils Absolute Auto 100 /uL (0-450); Eosinophils Percent Auto 2.7 % (2-4); Hematocrit 34.4 % (41-53); Hemoglobin 12.2 g/dL (13.5-17.5); Lymphocytes Absolute Auto 600 /uL (1100-4500); Lymphocytes Percent Auto 12.5 % (25-40); Mean Corpuscular HGB Conc 35.5 % (30-36); Mean Corpuscular Hemoglobin 35.6 PG (26-34); Mean Corpuscular Volume 100.2 fL (80-100); Monocytes Absolute Auto 500 /uL (0-900); Monocytes Percent Auto 11.9 % (3-14); Neutrophils Absolute Auto 3300 /uL (1500-7000); Neutrophils Percent Auto 72.6 % (50-75); Platelet Count 239 X10^3/uL (150-400); Red Blood Cell Count 3.44 X10^6/uL (4.5-5.9); Red Cell Distribution Width 14.4 % (11.6-14.8); White Blood Cell Count 4.5 X10^3/uL (4.5-11.0)
[2019-06-09 10:11] LABS: Alanine Aminotransferase 10 IU/L (<50); Albumin Globulin Ratio 1.3 (1.0-2.8); Alkaline Phosphatase 79 U/L (38-126); Aspartate Aminotransferase 26 IU/L (17-59); Bilirubin Total 0.7 mg/dL (0.2-1.3); Blood Urea Nitrogen 9 mg/dL (9-20); Calcium 9.1 mg/dL (8.4-10.2); Carbon Dioxide 27 mmol/L (22-32); Chloride 100 mmol/L (98-107); Estimated Glomerular Filt Rate > 60.0 mL/min (>60); Globulin 3.1 g/dL (1.7-4.1); Glucose 92 mg/dL (80-110); HEMOLYSIS < 15 (0-50); Potassium 4.6 mmol/L (3.4-5.1); Sodium 135 mmol/L (137-145); Total Protein 7.1 g/dL (6.3-8.2)
[2019-06-09 10:41] LABS: Prostate Specific Antigen 25.2 ng/mL (0.10-4.00)
[2019-06-09 10:44] LABS: Testosterone 21.4 ng/dL (71.8-623)
[2019-06-09] MEDS: dexAMETHasone 20 MG in SODIUM CHLORIDE 0.9% 50 ML 220 ML IV (10:45)
[2019-06-09] MEDS: SODIUM CHLORIDE 0.9% 100 ML 30 ML IV (10:46)
[2019-06-09] MEDS: diphenhydrAMINE 25 MG TABLET PO (10:47)
[2019-06-09] MEDS: ACETAMINOPHEN 325 MG TABLET 650 MG PO (10:47)
[2019-06-09] MEDS: ONDANSETRON 16 MG in SODIUM CHLORIDE 0.9% 50 ML 232 ML IV (11:09)
[2019-06-09] MEDS: FAMOTIDINE 20 MG/50 ML PIGGYBACK 200 MG IV (11:29)
[2019-06-09] MEDS: FOSAPREPITANT 150 MG in SODIUM CHLORIDE 0.9% 150 ML 300 ML IV (11:51)
[2019-06-09] MEDS: DEXTROSE 5% IV (12:44)
[2019-06-09] MEDS: PACLITAXEL IV (12:44)
--- NOTE | 2019-06-09 13:13 | ONC.MSW ---
*Pt declined a Chemo Quilt.
[2019-06-09] MEDS: SODIUM CHLORIDE 0.9% IV (16:06)
[2019-06-09] MEDS: CARBOPLATIN IV (16:06)
--- NOTE | 2019-06-16 11:22 | PC.NURSE ---
Pt requesting PT referral r/t increasing weakness to BLE. Will place note in Dr. Miguel's box regarding request.
[2019-06-16 11:26] LABS: Basophils Absolute Auto 0 /uL (0-100); Eosinophils Absolute Auto 100 /uL (0-450); Monocytes Absolute Auto 100 /uL (0-900); Neutrophils Absolute Auto 1100 /uL (1500-7000); Platelet Count 133 X10^3/uL (150-400)
[2019-06-16 11:30] LABS: Add Manual Diff / Slide Review NO; Basophils Percent Auto 1.5 % (0-2); Eosinophils Percent Auto 7.3 % (2-4); Hematocrit 34.1 % (41-53); Lymphocytes Absolute Auto 600 /uL (1100-4500); Lymphocytes Percent Auto 31.5 % (25-40); Mean Corpuscular HGB Conc 35.2 % (30-36); Mean Corpuscular Hemoglobin 35.4 PG (26-34); Mean Corpuscular Volume 100.7 fL (80-100); Monocytes Percent Auto 4.3 % (3-14); Neutrophils Percent Auto 55.4 % (50-75); Red Blood Cell Count 3.39 X10^6/uL (4.5-5.9); Red Cell Distribution Width 14.5 % (11.6-14.8)
[2019-06-16 11:38] LABS: Alanine Aminotransferase 13 IU/L (<50); Albumin Globulin Ratio 1.3 (1.0-2.8); Alkaline Phosphatase 82 U/L (38-126); Aspartate Aminotransferase 28 IU/L (17-59); BUN Creatinine Ratio 21.7 (6-22); Bilirubin Total 0.9 mg/dL (0.2-1.3); Blood Urea Nitrogen 13 mg/dL (9-20); Calcium 9.4 mg/dL (8.4-10.2); Carbon Dioxide 27 mmol/L (22-32); Chloride 101 mmol/L (98-107); Estimated Glomerular Filt Rate > 60.0 mL/min (>60); Globulin 3.1 g/dL (1.7-4.1); Glucose 90 mg/dL (80-110); HEMOLYSIS < 15 (0-50); Sodium 133 mmol/L (137-145); Total Protein 7.1 g/dL (6.3-8.2)
--- NOTE | 2019-06-17 15:01 | ONC.SCHED ---
Sent PT referral down to [facility] and they will contact him to schedule
[2019-06-30 09:27] VITALS: BP 133/69; PULSE 80; RESP 20; TEMP 36.9; O2SAT 99
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
[2019-06-30 10:02] LABS: Add Manual Diff / Slide Review NO; Basophils Absolute Auto 100 /uL (0-100); Basophils Percent Auto 1.1 % (0-2); Eosinophils Absolute Auto 100 /uL (0-450); Hematocrit 32.9 % (41-53); Hemoglobin 11.6 g/dL (13.5-17.5); Lymphocytes Absolute Auto 700 /uL (1100-4500); Lymphocytes Percent Auto 14.4 % (25-40); Mean Corpuscular HGB Conc 35.2 % (30-36); Mean Corpuscular Hemoglobin 35.9 PG (26-34); Mean Corpuscular Volume 101.8 fL (80-100); Monocytes Absolute Auto 600 /uL (0-900); Monocytes Percent Auto 11.9 % (3-14); Neutrophils Absolute Auto 3500 /uL (1500-7000); Neutrophils Percent Auto 70.6 % (50-75); Platelet Count 249 X10^3/uL (150-400); Red Blood Cell Count 3.23 X10^6/uL (4.5-5.9); Red Cell Distribution Width 15.2 % (11.6-14.8); White Blood Cell Count 4.9 X10^3/uL (4.5-11.0)
[2019-06-30 10:13] LABS: Alanine Aminotransferase 10 IU/L (<50); Albumin 3.8 g/dL (3.5-5.0); Albumin Globulin Ratio 1.3 (1.0-2.8); Alkaline Phosphatase 77 U/L (38-126); Aspartate Aminotransferase 25 IU/L (17-59); Bilirubin Total 0.5 mg/dL (0.2-1.3); Blood Urea Nitrogen 9 mg/dL (9-20); Calcium 9.4 mg/dL (8.4-10.2); Carbon Dioxide 26 mmol/L (22-32); Chloride 104 mmol/L (98-107); Estimated Glomerular Filt Rate > 60.0 mL/min (>60); Glucose 95 mg/dL (80-110); HEMOLYSIS < 15 (0-50); Sodium 137 mmol/L (137-145); Total Protein 6.8 g/dL (6.3-8.2)
--- NOTE | 2019-06-30 10:28 | ONC.MSW ---
*Pt received his Last Chemo Card.
[2019-06-30] MEDS: SODIUM CHLORIDE 0.9% 100 ML 21 ML IV (10:37)
[2019-06-30] MEDS: ACETAMINOPHEN 325 MG TABLET 650 MG PO (10:38)
[2019-06-30] MEDS: diphenhydrAMINE 25 MG TABLET PO (10:38)
[2019-06-30] MEDS: FAMOTIDINE 20 MG/50 ML PIGGYBACK 200 MG IV (10:40)
[2019-06-30] MEDS: FOSAPREPITANT 150 MG in SODIUM CHLORIDE 0.9% 150 ML 300 ML IV (11:00)
[2019-06-30] MEDS: dexAMETHasone 20 MG in SODIUM CHLORIDE 0.9% 50 ML 220 ML IV (11:01)
[2019-06-30 11:27] LABS: Testosterone 23.9 ng/dL (71.8-623)
[2019-06-30] MEDS: ONDANSETRON 16 MG in SODIUM CHLORIDE 0.9% 50 ML 232 ML IV (11:29)
[2019-06-30] MEDS: DEXTROSE 5% IV (12:42)
[2019-06-30] MEDS: PACLITAXEL IV (12:42)
[2019-06-30] MEDS: CARBOPLATIN IV (16:14)
[2019-06-30] MEDS: SODIUM CHLORIDE 0.9% IV (16:14)
[2019-07-13 12:08] LABS: Hematocrit 29.9 % (41-53); Hemoglobin 10.6 g/dL (13.5-17.5); Mean Corpuscular HGB Conc 35.4 % (30-36); Mean Corpuscular Hemoglobin 36.2 PG (26-34); Mean Corpuscular Volume 102.3 fL (80-100); Platelet Count 193 X10^3/uL (150-400); Red Blood Cell Count 2.92 X10^6/uL (4.5-5.9); Red Cell Distribution Width 15.4 % (11.6-14.8)
[2019-07-13 12:10] LABS: Add Manual Diff / Slide Review YES; White Blood Cell Count 1.4 X10^3/uL (4.5-11.0)
[2019-07-13 12:20] LABS: Alanine Aminotransferase 12 IU/L (<50); Albumin 3.9 g/dL (3.5-5.0); Albumin Globulin Ratio 1.3 (1.0-2.8); Alkaline Phosphatase 81 U/L (38-126); Aspartate Aminotransferase 25 IU/L (17-59); Bilirubin Total 0.3 mg/dL (0.2-1.3); Blood Urea Nitrogen 12 mg/dL (9-20); Calcium 9.3 mg/dL (8.4-10.2); Carbon Dioxide 25 mmol/L (22-32); Chloride 102 mmol/L (98-107); Estimated Glomerular Filt Rate > 60.0 mL/min (>60); Globulin 2.9 g/dL (1.7-4.1); Glucose 89 mg/dL (80-110); HEMOLYSIS < 15 (0-50); Sodium 135 mmol/L (137-145); Total Protein 6.8 g/dL (6.3-8.2)
[2019-07-13 12:31] LABS: Macrocytosis 1+; Neutrophils Absolute Manual 336 /uL (3000-5900); Total Cells Counted 50
--- NOTE | 2019-09-07 16:05 | P.PNONC_ITS ---
PN -Subjective Interval history: ID/CC: 78 year old with squamous cell lung cancer, and prostate cancer HPI: Niraj Roman is a 78 year old male. He has long time smoker of at least 2 or 3 packs per day and is not interested in smoking cessation. In 07/2018, CT scan of the chest showed left lung mass. He underwent flexible fiberoptic b ronchoscopy and endobronchial ultrasound with biopsy of mediastinal lymph nodes on 12/30/2018. The pathology showed that biopsy from 4L lymph node showed invasive poorly differentiated squamous cell carcinoma. PDL1 (22 C3 antibody) showed no expression. BRRAF negative for V600 mutation. It was stage T1b N2 M0 stage IIIA. Concurrent chemo radiotherapy was discussed with the patient. However patient opted for sequential radiation and chemotherapy. Patient received radiation therapy from 02/15/2019 and concluded on 03/31/2019. The left hilum plus end to neal station was treated and received 200 cGy daily to 6000 cGy in 30 fractions over 44 elapsed days. Then, he received Carboplatin and Taxol x 4 cycles 04/13/2019-06/30/2019. Patient has history of metastatic prostate adenocarcinoma, and has been followed by Dr. Augustin. PSA level on 03/02/2019 was 122. On 04/05/2019, Dr. Augustin performed bilateral scrotal orchiectomy for his diagnosis of metastatic adenocarcinoma of the prostate. Interim Events: Mr. Roman is complaining worsening peripheral neuropathy. However he said that the neuropathy of his lower legs have been present for more than 7 years after ?liver shock down for 2 days?. But with the chemotherapy he received, he has noticed tingling and numbing on top of what he has felt prior to the chemotherapy. He said it seems is not improving as of yet. Sometimes when he walks, he feels like for. He denies any headache double vision or blurred vision. No shortness of breath and no chest pain. No abdominal pain at no diarrhea no constipation. On 07/13/2019, patient underwent CT of the chest abdomen pelvis as a follow-up. It showed interval decrease in size of the left hilar mass. A small left hilar lymph node was noted, severe central lobular emphysema and right apical and lingular opacities were noted. Treatment Summary: 1. Radiation therapy 02/15/2019 and concluded on 03/31/2019. 2. Bilateral scrotal orchiectomy on 04/05/2019 3. Carboplatin and Taxol x 4 cycles 04/13/2019-06/30/2019 - Patient Self-Reported Symptoms SR Constitution: Fatigue/Malaise SR eye issues: Vision changes SR ears, nose, mouth, throat issues: Congestion, Cough, Difficulty swallowing SR respiratory issues: Cough, Shortness of breath SR Cardiovascular issues: Shortness of breath with activity or lying flat, Dizzy/lightheaded SR Skin issues: Skin rash or itching, Hair loss or scalp prob SR Gastrointestinal issues: Poor or no appetite SR Genitourinary issues: Change in stream SR Musculoskeletal issues: Muscle weakness, Back or neck pain, Difficulty walking SR Neuro issues: Lightheaded/dizzy, Numbness or tingling, Difficulty balancing SR Endocrine issues: Cold intolerance - Additional ROS All systems PM: reviewed and no additional remarkable complaints except as stated Home Medications and Allergies Home Medications Medication Instructions Recorded Confirmed Type ascorbic acid (vitamin C) [Vitamin 1,000 mg PO DAILY #1 10/08/10 06/09/19 History C] aspirin 325 mg PO DAILY #0 10/08/10 06/09/19 History cholecalciferol (vitamin D3) 1,000 unit PO DAILY #0 10/08/10 06/09/19 History [Vitamin D3] betamethasone dipropionate 0.05 % 1 applictn TOP BID PRN 10/23/18 06/09/19 Hist ory topical cream cyanocobalamin (vitamin B-12) 1,000 mcg PO DAILY 10/23/18 06/09/19 History 1,000 mcg capsule hydrocortisone 0.5 % topical 1 applictn TOP BID-QID PRN 10/23/18 06/09/19 H istory ointment ipratropium bromide 0.03 % nasal 2 spray NASAL BID-TID PRN 10/23/18 06/09/19 History spray oxycodone-acetaminophen 5 mg-325 1 tab PO Q8H PRN tab 10/23/18 06/09/19 History mg tablet promethazine 6.25 mg-codeine 10 5 ml PO Q4H PRN 10/23/18 06/09/19 History mg/5 mL syrup thiamine HCl (vitamin B1) 100 mg 100 mg PO DAILY 10/23/18 06/09/19 History tablet triamcinolone acetonide 0.1 % 1 applictn TOP QID 10/23/18 06/09/19 History topical cream omeprazole 40 mg PO DAILY 01/28/19 06/09/19 History tamsulosin 0.4 mg PO DAILY 01/28/19 06/09/19 History acetaminophen [Tylenol] 650 mg PO QID PRN #60 cap 04/14/19 06/09/19 Rx gabapentin 100 mg PO TID #90 cap 09/07/19 Rx Allergies Allergy/AdvReac Type Severity Reaction Status Date / Time amoxicillin AdvReac Vomiting, Verified 04/14/19 15:45 diarrhea clavulanic acid AdvReac vomiting, Verified 04/14/19 15:45 [From Augmentin] diarrhea Exam Vital signs: Last Vital Signs Temp 98.4 F 06/30/19 09:27 Pulse 80 06/30/19 09:27 Resp 20 06/30/19 09:27 BP 133/69 06/30/19 09:27 Pulse Ox 99 06/30/19 09:27 Narrative: ECOG 1 Gen: WDWN, NAD, pleasant and cooperative. HEENT: NCAT, EOMI, PERRLA, anicteric sclera. Neck: Supple, No palpable thyromegaly or lymphadenopathy. Respiratory: CTAB, no wheezes audible. No JVD Cardiovascular: RRR, S1 and S2 normal, no M/G/R. Abdomen: Soft, NTND, BS normal, no palpable organomegaly Extremities: No LE pitting edema. Lymphatic: no palpable lymph nodes in the neck, axillae, or groins. Neurological: AOx3, CN II-XII grossly intact. No focal motor or sensory deficit. Psychiatric: Good judgment and insight; normal affect; normal thought process. Results - Labs Reviewed. Assessment and Plan (1) Squamous cell carcinoma of left lung Overview: 78-year-old gentleman with left lung poorly differentiated squamous cell carcinoma stage T1b N2. Patient refused concurrent chemoradiotherapy and opted for sequential radiation and chemotherapy. He completed radiation therapy from 02/15/2019 and concluded on 03/31/2019. Then he completed Carboplatin and Taxol x 4 cycles 04/13/2019-06/30/2019 Assessment: I reviewed the CT scan results from 07/13/2019. It showed response to the chemotherapy and radiation therapy. I talked with him that I will continue every 3 months imaging follow-up. He voiced understanding. Plan: CT CAP w/contrast in 3 months RTC after scan, CBC, CMP (2) Prostate cancer Patient has prostate adeno carcinoma being followed by Dr. alicia which. Patient refused androgen deprivation therapy, and opted for bilateral orchiectomy which happened on 04/05/2019. PSA level has decreased to 25 following his orchiectomy. Plan: Continue follow up with Dr. Augustin.
[2019-12-09 13:07] VITALS: BP 139/69; PULSE 80; RESP 18; TEMP 36.8; O2SAT 97
--- NOTE | 2019-12-09 13:11 | P.PNONC_ITS ---
PN -Subjective Interval history: ID/CC: 78 year old with squamous cell lung cancer, and prostate cancer HPI: Niraj Roman is a 78 year old male. He has long time smoker of at least 2 or 3 packs per day and is not interested in smoking cessation. In 07/2018, CT scan of the chest showed left lung mass. He underwent flexible fiberoptic b ronchoscopy and endobronchial ultrasound with biopsy of mediastinal lymph nodes on 12/30/2018. The pathology showed that biopsy from 4L lymph node showed invasive poorly differentiated squamous cell carcinoma. PDL1 (22 C3 antibody) showed no expression. BRRAF negative for V600 mutation. It was stage T1b N2 M0 stage IIIA. Concurrent chemo radiotherapy was discussed with the patient. However patient opted for sequential radiation and chemotherapy. Patient received radiation therapy from 02/15/2019 and concluded on 03/31/2019. The left hilum plus end to neal station was treated and received 200 cGy daily to 6000 cGy in 30 fractions over 44 elapsed days. Then, he received Carboplatin and Taxol x 4 cycles 04/13/2019-06/30/2019. Patient has history of metastatic prostate adenocarcinoma, and has been followed by Dr. Augustin. PSA level on 03/02/2019 was 122. On 04/05/2019, Dr. Augustin performed bilateral scrotal orchiectomy for his diagnosis of metastatic adenocarcinoma of the prostate. On 07/13/2019, patient underwent CT of the chest abdomen pelvis as a follow-up. It showed interval decrease in size of the left hilar mass. A small left hilar lymph node was noted, severe central lobular emphysema and right apical and lingular opacities were noted. Interim Events: He did not take Gabapetin and would like to wait until he sees neurologist next week. He also has prescription for oxycodone and but helpful for the neuropathy He did not want to follow up with urologist because his PSA level is not very high Port flush monthly. He wants to have the port moved out. He is still complaining of lower leg tingling or numbing. Treatment Summary: 1. Radiation therapy 02/15/2019 and concluded on 03/31/2019. 2. Bilateral scrotal orchiectomy on 04/05/2019 3. Carboplatin and Taxol x 4 cycles 04/13/2019-06/30/2019 - Patient Self-Reported Symptoms SR Constitution: Fatigue/Malaise SR eye issues: Vision changes SR ears, nose, mouth, throat issues: Congestion, Cough, Difficulty swallowing SR respiratory issues: Cough, Shortness of breath SR Cardiovascular issues: Shortness of breath with activity or lying flat, Dizzy/lightheaded SR Skin issues: Skin rash or itching, Hair loss or scalp prob SR Gastrointestinal issues: Poor or no appetite SR Genitourinary issues: Change in stream SR Musculoskeletal issues: Muscle weakness, Back or neck pain, Difficulty walking SR Neuro issues: Lightheaded/dizzy, Numbness or tingling, Difficulty balancing SR Endocrine issues: Cold intolerance Home Medications and Allergies Home Medications Medication Instructions Recorded Confirmed Type ascorbic acid (vitamin C) [Vitamin 1,000 mg PO DAILY #1 10/08/10 12/09/19 History C] aspirin 325 mg PO DAILY #0 10/08/10 12/09/19 History cholecalciferol (vitamin D3) 1,000 unit PO DAILY #0 10/08/10 12/09/19 History [Vitamin D3] betamethasone dipropionate 0.05 % 1 applictn TOP BID PRN 10/23/18 12/09/19 History topical cream cyanocobalamin (vitamin B-12) 1,000 mcg PO DAILY 10/23/18 12/09/19 History 1,000 mcg capsule hydrocortisone 0.5 % topical 1 applictn TOP BID-QID PRN 10/23/18 12/09/19 History ointment ipratropium bromide 0.03 % nasal 2 spray NASAL BID-TID PRN 10/23/18 12/09/19 History spray oxycodone-acetaminophen 5 mg-325 1 tab PO Q8H PRN tab 10/23/18 12/09/19 History mg tablet promethazine 6.25 mg-codeine 10 5 ml PO Q4H PRN 10/23/18 12/09/19 History mg/5 mL syrup thiamine HCl (vitamin B1) 100 mg 100 mg PO DAILY 10/23/18 06/09/19 History tablet triamcinolone acetonide 0.1 % 1 applictn TOP QID 10/23/18 06/09/19 History topical cream omeprazole 40 mg PO DAILY 01/28/19 12/09/19 History tamsulosin 0.4 mg PO DAILY 01/28/19 06/09/19 History acetaminophen [Tylenol] 650 mg PO QID PRN #60 cap 04/14/19 12/09/19 Rx gabapentin 100 mg PO TID #90 cap 09/07/19 12/09/19 Rx Allergies Allergy/AdvReac Type Severity Reaction Status Date / Time amoxicillin AdvReac Vomiting, Verified 04/14/19 15:45 diarrhea clavulanic acid AdvReac vomiting, Verified 04/14/19 15:45 [From Augmentin] diarrhea Exam Vital signs: Vital Signs Temp Pulse Resp BP Pulse Ox 12/09/19 13:07 98.2 F 80 18 139/69 97 Intake and Output 12/08/19 12/09/19 12/09/19 23:59 07:59 15:59 Other: Weight 67.3 kg Patient Weight 12/09/19 23:59 Weight 67.3 kg Narrative: ECOG 1 Gen: WDWN, NAD, pleasant and cooperative. HEENT: NCAT, EOMI, PERRLA, anicteric sclera. Neck: Supple, No palpable thyromegaly or lymphadenopathy. Respiratory: CTAB, no wheezes audible. No JVD Cardiovascular: RRR, S1 and S2 normal, no M/G/R. Abdomen: Soft, NTND, BS normal, no palpable organomegaly Extremities: No LE pitting edema. Lymphatic: no palpable lymph nodes in the neck, axillae, or groins. Neurological: AOx3, CN II-XII grossly intact. No focal motor or sensory deficit. Psychiatric: Good judgment and insight; normal affect; normal thought process. Results - Labs Laboratory Last Values WBC 1.4 X10^3/uL (4.5-11.0) L* 07/13/19 11:45 RBC 2.92 X10^6/uL (4.5-5.9) L 07/13/19 11:45 Hgb 10.6 g/dL (13.5-17.5) L 07/13/19 11:45 Hct 29.9 % (41-53) L 07/13/19 11:45 MCV 102.3 fL (80-100) H 07/13/19 11:45 MCH 36.2 PG (26-34) H 07/13/19 11:45 MCHC 35.4 % (30-36) 07/13/19 11:45 RDW 15.4 % (11.6-14.8) H 07/13/19 11:45 Plt Count 193 X10^3/uL (150-400) 07/13/19 11:45 Neut % (Auto) Not Reportable 07/13/19 11:45 Lymph % (Auto) Not Reportable 07/13/19 11:45 Evans % (Auto) Not Reportable 07/13/19 11:45 Eos % (Auto) Not Reportable 07/13/19 11:45 Baso % (Auto) Not Reportable 07/13/19 11:45 Neut # (Auto) 3500 /uL (1259-4247) 06/30/19 09:45 Lymph # (Auto) Not Reportable 07/13/19 11:45 Evans # (Auto) Not Reportable 07/13/19 11:45 Eos # (Auto) 100 /uL (0-450) 06/30/19 09:45 Baso # (Auto) Not Reportable 07/13/19 11:45 Total Counted 50 07/13/19 11:45 Seg Neutrophils % 22.0 % (38-70) L 07/13/19 11:45 Band Neutrophils % 2.0 % (3-7) L 07/13/19 11:45 Lymphocytes % (Manual) 40.0 % (25-45) 07/13/19 11:45 Monocytes % (Manual) 32.0 % (2-11) H 07/13/19 11:45 Eosinophils % (Manual) 4.0 % (2-4) 07/13/19 11:45 Basophils % (Manual) 2.0 % (0-1) H 05/26/19 11:10 Neutrophils # (Manual) 336 /uL (9313-1103) L 07/13/19 11:45 RBC Morphology Not Reportable 07/13/19 11:45 Macrocytosis 1+ H 07/13/19 11:45 Sodium 135 mmol/L (137-145) L 07/13/19 11:45 Potassium 4.0 mmol/L (3.4-5.1) 07/13/19 11:45 Chloride 102 mmol/L (98-107) 07/13/19 11:45 Carbon Dioxide 25 mmol/L (22-32) 07/13/19 11:45 BUN 12 mg/dL (9-20) 07/13/19 11:45 Creatinine 0.60 mg/dL (0.66-1.25) L 07/13/19 11:45 Estimated GFR > 60.0 mL/min (>60) 07/13/19 11:45 BUN/Creatinine Ratio 20.0 (6-22) 07/13/19 11:45 Glucose 89 mg/dL (80-110) 07/13/19 11:45 Calcium 9.3 mg/dL (8.4-10.2) 07/13/19 11:45 Total Bilirubin 0.3 mg/dL (0.2-1.3) 07/13/19 11:45 AST 25 IU/L (17-59) 07/13/19 11:45 ALT 12 IU/L (<50) 07/13/19 11:45 Alkaline Phosphatase 81 U/L (38-126) 07/13/19 11:45 Total Protein 6.8 g/dL (6.3-8.2) 07/13/19 11:45 Albumin 3.9 g/dL (3.5-5.0) 07/13/19 11:45 Globulin 2.9 g/dL (1.7-4.1) 07/13/19 11:45 Albumin/Globulin Ratio 1.3 (1.0-2.8) 07/13/19 11:45 Prostate Specific Ag 23.0 ng/mL (0.10-4.00) H 06/30/19 09:45 Testosterone Level 23.9 ng/dL (71.8-623) L 06/30/19 09:45 Assessment and Plan (1) Squamous cell carcinoma of left lung Overview: 79-year-old gentleman with left lung poorly differentiated squamous cell carcinoma stage T1b N2. Patient refused concurrent chemoradiotherapy and opted for sequential radiation and chemotherapy. He completed radiation therapy from 02/15/2019 and concluded on 03/31/2019. Then he completed Carboplatin and Taxol x 4 cycles 04/13/2019-06/30/2019 Assessment: I reviewed the CT scan results from 11/29/2019. It showed that the left hilar mass has slightly increased in size. A close interval follow-up is recommended. Clinically patient does not have any new signs or symptoms. Talked with the patient that I will bring him back in [address] chest abdomen pelvis. Patient voiced understanding. In addition the CT scan also showed abdominal aortic aneurysm measuring 3.1 cm in diameter. I will refer the patient to a vascular surgeon to establish care. Plan: Referral to vascular surgeon to establish care regarding AAA CT CAP w/contrast in 2 months RTC after scan, CBC, CMP (2) Prostate cancer Patient has prostate adeno carcinoma being followed by Dr. Augustin. Patient refused androgen deprivation therapy, and opted for bilateral orchiectomy which happened on 04/05/2019. PSA level has decreased to 14.9 following his orchiectomy. Plan: Continue follow up with Dr. Augustin.
--- NOTE | 2019-12-09 15:12 | ONC.SCHED ---
Faxed referral to [facility] for consult. Scanned fax confirmation.
--- NOTE | 2019-12-13 11:51 | ONC.SCHED ---
Per Emmett @ [facility] ~ it is being processed and patient should be scheduled in 7-10 days.
--- NOTE | 2019-12-23 16:30 | ONC.SCHED ---
Patient is scheduled for consult with Dr. Casanova on 01/13/2020 ([facility]).
[2020-02-10 13:49] VITALS: BP 136/71; PULSE 63; RESP 20; TEMP 36.8; O2SAT 94
--- NOTE | 2020-02-10 14:16 | P.PNONC_ITS ---
PN -Subjective Interval history: ID/CC: 79 year old with squamous cell lung cancer, and prostate cancer HPI: Niraj Roman is a 79 year old male. He has long time smoker of at least 2 or 3 packs per day and is not interested in smoking cessation. In 07/2018, CT scan of the chest showed left lung mass. He underwent flexible fiberoptic b ronchoscopy and endobronchial ultrasound with biopsy of mediastinal lymph nodes on 12/30/2018. The pathology showed that biopsy from 4L lymph node showed invasive poorly differentiated squamous cell carcinoma. PDL1 (22 C3 antibody) showed no expression. BRRAF negative for V600 mutation. It was stage T1b N2 M0 stage IIIA. Concurrent chemo radiotherapy was discussed with the patient. However patient opted for sequential radiation and chemotherapy. Patient received radiation therapy from 02/15/2019 and concluded on 03/31/2019. The left hilum plus end to neal station was treated and received 200 cGy daily to 6000 cGy in 30 fractions over 44 elapsed days. Then, he received Carboplatin and Taxol x 4 cycles 04/13/2019-06/30/2019. Patient has history of metastatic prostate adenocarcinoma, and has been followed by Dr. Augustin. PSA level on 03/02/2019 was 122. On 04/05/2019, Dr. Augustin performed bilateral scrotal orchiectomy for his diagnosis of metastatic adenocarcinoma of the prostate. On 07/13/2019, patient underwent CT of the chest abdomen pelvis as a follow-up. It showed interval decrease in size of the left hilar mass. A small left hilar lymph node was noted, severe central lobular emphysema and right apical and lingular opacities were noted. Interim Events: Clinically patient has been doing well except the breathing problems which is likely due to his severe emphysema. No cough. No chest pain. No abdominal pain. No diarrhea no constipation. Patient underwent CT of the chest abdomen pelvis yesterday it showed no disease progression or metastasis. Patient pres ents here today for scheduled follow-up visit. Treatment Summary: 1. Radiation therapy 02/15/2019 and concluded on 03/31/2019. 2. Bilateral scrotal orchiectomy on 04/05/2019 3. Carboplatin and Taxol x 4 cycles 04/13/2019-06/30/2019 - Patient Self-Reported Symptoms SR Constitution: Fatigue/Malaise SR eye issues: Vision changes SR ears, nose, mouth, throat issues: Congestion, Cough SR respiratory issues: Cough, Shortness of breath SR Cardiovascular issues: Shortness of breath with activity or lying flat, Dizzy/lightheaded SR Skin issues: Skin rash or itching SR Gastrointestinal issues: Poor or no appetite SR Genitourinary issues: Change in stream SR Musculoskeletal issues: Muscle weakness SR Neuro issues: Lightheaded/dizzy, Numbness or tingling, Difficulty balancing SR Endocrine issues: Cold intolerance - Additional ROS All systems PM: reviewed and no additional remarkable complaints except as stated Home Medications and Allergies Home Medications Medication Instructions Recorded Confirmed Type ascorbic acid (vitamin C) [Vitamin 1,000 mg PO DAILY #1 10/08/10 12/09/19 History C] aspirin 325 mg PO DAILY #0 10/08/10 12/09/19 History cholecalciferol (vitamin D3) 1,000 unit PO DAILY #0 10/08/10 12/09/19 History [Vitamin D3] betamethasone dipropionate 0.05 % 1 applictn TOP BID PRN 10/23/18 12/09/19 History topical cream cyanocobalamin (vitamin B-12) 1,000 mcg PO DAILY 10/23/18 12/09/19 History 1,000 mcg capsule hydrocortisone 0.5 % topical 1 applictn TOP BID-QID PRN 10/23/18 12/09/19 History ointment ipratropium bromide 0.03 % nasal 2 spray NASAL BID-TID PRN 10/23/18 12/09/19 History spray oxycodone-acetaminophen 5 mg-325 1 tab PO Q8H PRN tab 10/23/18 12/09/19 History mg tablet promethazine 6.25 mg-codeine 10 5 ml PO Q4H PRN 10/23/18 12/09/19 History mg/5 mL syrup thiamine HCl (vitamin B1) 100 mg 100 mg PO DAILY 10/23/18 06/09/19 History tablet triamcinolone acetonide 0.1 % 1 applictn TOP QID 10/23/18 06/09/19 History topical cream omeprazole 40 mg PO DAILY 01/28/19 12/09/19 History tamsulosin 0.4 mg PO DAILY 01/28/19 06/09/19 History acetaminophen [Tylenol] 650 mg PO QID PRN #60 cap 04/14/19 12/09/19 Rx gabapentin 100 mg PO TID #90 cap 09/07/19 12/09/19 Rx Allergies Allergy/AdvReac Type Severity Reaction Status Date / Time amoxicillin AdvReac Vomiting, Verified 04/14/19 15:45 diarrhea clavulanic acid AdvReac vomiting, Verified 04/14/19 15:45 [From Augmentin] diarrhea Exam Vital signs: Vital Signs Temp Pulse Resp BP Pulse Ox 02/10/20 13:49 98.3 F 63 20 136/71 94 Intake and Output 02/09/20 02/10/20 02/10/20 23:59 07:59 15:59 Other: Weight 69.7 kg Patient Weight 02/10/20 23:59 Weight 69.7 kg Narrative: ECOG 1 Gen: WDWN, NAD, pleasant and cooperative. HEENT: NCAT, EOMI, PERRLA, anicteric sclera. Neck: Supple, No palpable thyromegaly or lymphadenopathy. Respiratory: CTAB, no wheezes audible. No JVD Cardiovascular: RRR, S1 and S2 normal, no M/G/R. Abdomen: Soft, NTND, BS normal, no palpable organomegaly Extremities: No LE pitting edema. Lymphatic: no palpable lymph nodes in the neck, axillae, or groins. Neurological: AOx3, CN II-XII grossly intact. No focal motor or sensory deficit. Psychiatric: Good judgment and insight; normal affect; normal thought process. Results - Labs 02/07/2020, WBC 5.7, hemoglobin 13.6, hematocrit 38.9, platelets 239, sodium 136, potassium 4.2, chloride 102, carbon dioxide 27, creatinine 0.71, glucose 105, calcium 9.6, total bilirubin 0.6, AST 31, ALT 11, alk-phos 85, total protein 7.3, albumin 4.0. Assessment and Plan (1) Squamous cell carcinoma of left lung Overview: 79-year-old gentleman with left lung poorly differentiated squamous cell carcinoma stage T1b N2. Patient refused concurrent chemoradiotherapy and opted for sequential radiation and chemotherapy. He completed radiation therapy from 02/15/2019 and concluded on 03/31/2019. Then he completed Carboplatin and Taxol x 4 cycles 04/13/2019-06/30/2019 Assessment: I reviewed the CT scan results from 02/08/2020. It showed that the left hilar mass has minimally changed in size since the last exam. Continued close imaging follow-up is suggested. Stable left apical airspace opacity noted and lingula the subpleural opacity. It showed severe emphysema. It also showed the known mild infrarenal abdominal aortic aneurysm. It showed enlarged prostate. I talked with him that I will continue current imaging surveillance. Plan: CT CAP w/contrast in 6 months RTC after scan, CBC, CMP, PSA (2) Prostate cancer Patient has prostate adeno carcinoma being followed by Dr. Augustin. Patient refused androgen deprivation therapy, and opted for bilateral orchiectomy which happened on 04/05/2019. PSA level has decreased to 14.9 following his orchiectomy. He will continue follow up with Dr. Augustin.
--- NOTE | 2020-02-14 15:35 | PC.NURSE ---
pt comes in for port flush. skin over port has eroded so plastic membrane can be seen. Dr. Abdi notified; he will have his office call pt to have port removed. Dr. Pérez notified and assessed. port not flushed. folded 2x2 placed on port with tegaderm over it.
--- NOTE | 2020-04-12 15:53 | ONC.SCHED ---
CT C/A/P codecorrect ok with DX C34.92.
--- NOTE | 2020-04-12 15:59 | ONC.SCHED ---
Scheduled patient per doctor's orders. Called to inform patient of appointments, no answer, no opportunity to leave message. Will attempt again. Will give following: Labs @ [facility] 07/17/20,;CT C/A/P w/ on 07/19/20: clear liquids after 7:30, check-in @ 10:00, CT @ 11:30; follow-up with Dr. Pérez: 1:00 check-in for 1:20 appointment on 07/24/20.
--- NOTE | 2020-04-20 12:28 | ONC.SCHED ---
Tried to give appointments to patient. No answer. No voicemail.
--- NOTE | 2020-04-25 16:57 | ONC.SCHED ---
Reached patient to give 2020 appointments.
[2020-04-26 15:40] LABS: Prostate Specific Antigen 24.5 ng/mL (0.10-4.00)
== END ==
PROVIDERS: Specialist; Family Provider Student in an Organized Health Care Education/Training Program; PCP Student in an Organized Health Care Education/Training Program; Visit Provider Internal Medicine Hematology & Oncology
DX: C34.02 Malignant neoplasm of left main bronchus (principal); N40.0 Benign prostatic hyperplasia without lower urinary tract symptoms
CPT/HCPCS: 36415; 36591; 71260; 74177; 80053; 84153; 84403; 85025; 96367; 96375; 96413; 96415; 96417; 96523; 99203; 99213; 99214; 99215; J1100; J1453; J2405; J7060; J9045; J9267; Q9967